=== PATIENT | male | born 1950 | race Caucasian/White ===

== ENCOUNTER → 2018-03-08 | Outpatient (CLI) | payer MEDICARE ==
[2018-03-08 16:25] LABS: BASO % 0.1 % (0.0-1.0); EOS % 0.3 % (0.0-3.0); HEMATOCRIT 43.7 % (42.0-52.0); HEMOGLOBIN 15.4 g/dl (13.5-17.5); IMMATURE GRANULOCYTE % 0.4 % (0-3.0); LYMPH # 0.8 10^3/uL (1.5-4.5); LYMPH % 7.9 % (24.0-44.0); MEAN CORPUSCULAR HEMOGLOBIN 32.6 pg (27.0-33.0); MEAN CORPUSCULAR HGB CONC 35.2 g/dl (32.0-36.5); MEAN CORPUSCULAR VOLUME 92.4 fl (80.0-96.0); MONO # 1.3 10^3/uL (0.0-0.8); MONO % 12.9 % (0.0-5.0); NEUTROPHILS # 8.1 10^3/uL (1.8-7.7); NEUTROPHILS % 78.4 % (36.0-66.0); PLATELET COUNT, AUTOMATED 352 10^3/uL (150-450); RED BLOOD COUNT 4.73 10^6/uL (4.30-6.10); RED CELL DISTRIBUTION WIDTH 12.5 % (11.5-14.5); WHITE BLOOD COUNT 10.3 10^3/uL (4.0-10.0)
[2018-03-08 17:01] LABS: ALBUMIN 3.5 GM/DL (3.2-5.2); ALBUMIN/GLOBULIN RATIO 0.88 (1.00-1.93); ALKALINE PHOSPHATASE 59 U/L (45-117); ALT/SGPT 16 U/L (12-78); ANION GAP 7 MEQ/L (8-16); AST/SGOT 16 U/L (7-37); BILIRUBIN,TOTAL 0.4 MG/DL (0.2-1.0); BLOOD UREA NITROGEN 34 MG/DL (7-18); CARBON DIOXIDE LEVEL 26 MEQ/L (21-32); CHLORIDE LEVEL 103 MEQ/L (98-107); CREATININE FOR GFR 2.33 MG/DL (0.70-1.30); GLOMERULAR FILTRATION RATE 30.1 (>49); GLUCOSE, FASTING 115 MG/DL (70-100); POTASSIUM SERUM 4.1 MEQ/L (3.5-5.1); SODIUM LEVEL 136 MEQ/L (136-145); TOTAL PROTEIN 7.5 GM/DL (6.4-8.2)
== END ==
LOC: M LAB 16:08
DX: R05 Cough (principal); R06.02 Shortness of breath; R07.9 Chest pain, unspecified
CPT/HCPCS: 71046

== ENCOUNTER → 2018-03-11 | Outpatient (CLI) | payer MEDICARE ==
[2018-03-11 17:52] LABS: HEMATOCRIT 40.1 % (42.0-52.0); MEAN CORPUSCULAR HEMOGLOBIN 32.5 pg (27.0-33.0); MEAN CORPUSCULAR HGB CONC 34.9 g/dl (32.0-36.5); PLATELET COUNT, AUTOMATED 345 10^3/uL (150-450); RED BLOOD COUNT 4.31 10^6/uL (4.30-6.10); RED CELL DISTRIBUTION WIDTH 12.1 % (11.5-14.5); WHITE BLOOD COUNT 5.9 10^3/uL (4.0-10.0)
[2018-03-11 18:12] LABS: ALBUMIN 3.4 GM/DL (3.2-5.2); ALKALINE PHOSPHATASE 59 U/L (45-117); ALT/SGPT 22 U/L (12-78); ANION GAP 9 MEQ/L (8-16); AST/SGOT 16 U/L (7-37); BILIRUBIN,TOTAL 0.3 MG/DL (0.2-1.0); BLOOD UREA NITROGEN 20 MG/DL (7-18); CARBON DIOXIDE LEVEL 27 MEQ/L (21-32); CHLORIDE LEVEL 102 MEQ/L (98-107); CREATININE FOR GFR 1.38 MG/DL (0.70-1.30); FREE T4 1.22 NG/DL (0.76-1.46); GLOMERULAR FILTRATION RATE 55.1 (>49); GLUCOSE, FASTING 103 MG/DL (70-100); POTASSIUM SERUM 4.1 MEQ/L (3.5-5.1); SODIUM LEVEL 138 MEQ/L (136-145); TOTAL PROTEIN 6.5 GM/DL (6.4-8.2)
== END ==
LOC: M WUC 13:48
DX: R63.4 Abnormal weight loss (principal); R53.83 Other fatigue; R11.0 Nausea; N28.9 Disorder of kidney and ureter, unspecified
CPT/HCPCS: 84443

== ENCOUNTER → 2020-02-22 | Outpatient (REF) | payer MEDICARE ==
[2020-02-22 11:33] LABS: BASO % 0.4 % (0.0-1.0); EOS # 0.1 10^3/uL (0.0-0.5); EOS % 0.4 % (0.0-3.0); HEMATOCRIT 46.3 % (42.0-52.0); HEMOGLOBIN 15.5 g/dl (13.5-17.5); LYMPH # 0.9 10^3/uL (1.5-5.0); LYMPH % 7.9 % (24.0-44.0); MEAN CORPUSCULAR HEMOGLOBIN 31.4 pg (27.0-33.0); MEAN CORPUSCULAR HGB CONC 33.5 g/dl (32.0-36.5); MEAN CORPUSCULAR VOLUME 93.9 fl (80.0-96.0); MONO # 1.3 10^3/uL (0.0-0.8); MONO % 11.2 % (0.0-5.0); NEUTROPHILS % 79.5 % (36.0-66.0); PLATELET COUNT, AUTOMATED 321 10^3/uL (150-450); RED BLOOD COUNT 4.93 10^6/uL (4.30-6.10); WHITE BLOOD COUNT 11.3 10^3/uL (4.0-10.0)
== END ==
LOC: M LAB REF 11:18
PROVIDERS: ATTEND Physician Assistant
DX: M25.50 Pain in unspecified joint (principal)

== ENCOUNTER 2021-05-01 14:14 | Observation (INO) | payer MEDICARE ==
[~2021-05-01] VITALS: Ht 175.3 cm; Wt 58.8 kg
[2021-05-01 14:52] LABS: BASO % 0.2 % (0.0-1.0); HEMATOCRIT 46.2 % (42.0-52.0); HEMOGLOBIN 15.6 g/dl (13.5-17.5); LYMPH # 0.5 10^3/uL (1.5-5.0); LYMPH % 3.2 % (24.0-44.0); MEAN CORPUSCULAR HEMOGLOBIN 31.6 pg (27.0-33.0); MEAN CORPUSCULAR HGB CONC 33.8 g/dl (32.0-36.5); MEAN CORPUSCULAR VOLUME 93.5 fl (80.0-96.0); MONO # 1.6 10^3/uL (0.0-0.8); MONO % 11.2 % (2.0-8.0); NEUTROPHILS # 12.3 10^3/uL (1.5-8.5); NEUTROPHILS % 84.8 % (36.0-66.0); PLATELET COUNT, AUTOMATED 317 10^3/uL (150-450); RED BLOOD COUNT 4.94 10^6/uL (4.30-6.10)
[2021-05-01 14:56] LABS: WHITE BLOOD COUNT 14.5 10^3/uL (4.0-10.0)
--- NOTE | 2021-05-01 14:59 | REP ---
INDICATION: DYSPNEA/COUGH. COMPARISON: Comparison chest x-ray March 08, 2018. TECHNIQUE: Upright AP portable chest x-ray, two views.. FINDINGS: Lungs are somewhat hyperinflated but free of infiltrate. Pleural angles are sharp. Heart is not enlarged. The aorta is calcific and tortuous as before. Pulmonary vasculature is not increased. No significant bony abnormality is seen.. IMPRESSION: Hyperinflation. No acute disease.. <Electronically signed by Jaspreet Peterson > 05/01/21 [id number]
[2021-05-01 15:29] LABS: ALBUMIN 3.7 GM/DL (3.2-5.2); ALT/SGPT 24 U/L (12-78); BILIRUBIN,DIRECT < 0.1 MG/DL (0.0-0.2); BILIRUBIN,TOTAL 0.7 MG/DL (0.2-1.0); BLOOD UREA NITROGEN 33 MG/DL (7-18); CALCIUM LEVEL 9.8 MG/DL (8.8-10.2); CARBON DIOXIDE LEVEL 25 MEQ/L (21-32); CHLORIDE LEVEL 102 MEQ/L (98-107); CREATININE FOR GFR 2.38 MG/DL (0.70-1.30); GLOMERULAR FILTRATION RATE 29.1 (>49); GLUCOSE, FASTING 120 MG/DL (70-100); POTASSIUM SERUM 4.9 MEQ/L (3.5-5.1); SODIUM LEVEL 134 MEQ/L (136-145); TOTAL PROTEIN 7.5 GM/DL (6.4-8.2)
[2021-05-01 15:53] LABS: CK-MB VALUE MASS < 1.0 NG/ML (<3.6); CPK CREATINE PHOSPHOKINASE 107 U/L (39-308); MB/CK RELATIVE INDEX 0.93 (< OR =4); NT-PRO BNP 527 PG/ML (<125); TROPONIN I < 0.02 NG/ML (< 0.10)
[2021-05-01] MEDS ORDERED: NS 1,000 ML IV SCH (15:55)
--- NOTE | 2021-05-01 16:05 | REP ---
INDICATION: R flank pain. COMPARISON: None. TECHNIQUE: Noncontrast enhanced stone protocol due right flank pain FINDINGS: There are multiple bilateral nonobstructing nephroliths. Calcified granulomas are seen in the spleen. There is no hepatic, gallbladder, pancreatic, or adrenal abnormality seen on this noncontrast enhanced exam. Limited evaluation of the abdominal aorta and para-aortic regions show no gross abnormalities. There is no gross bowel loop or mesenteric abnormality. There is no free fluid or free air. Bone window technique throughout the examination shows the osseous structures to be within normal limits. IMPRESSION: Nonobstructing bilateral nephroliths <Electronically signed by Morro Wu > 05/01/21 [id number]
[2021-05-01 16:06] LABS: LIPASE 73 U/L (73-393)
--- NOTE | 2021-05-01 16:08 | REP ---
INDICATION: SOB COMPARISON: None. TECHNIQUE: Limited noncontrast enhanced chest CT using standard helical technique FINDINGS: There is no gross mediastinal or hilar adenopathy. There are no pleural or pericardial effusions. Calcific atheromatous plaque formation is seen in the thoracic aorta. The osseous structures are within normal limits for the patient's age. Evaluation of the lung webster shows lung field hyperexpansion and emphysematous changes with biapical pleuroparenchymal scarring. There is an incidental calcified granuloma in the left lower lobe. There is a small amount of mucoid debris in the right mainstem bronchus and bronchus intermedius. There is cylindrical bronchiectasis. IMPRESSION: 1. Emphysematous changes as described above. 2. Biapical pleuroparenchymal scarring, however, there are no priors comparison. Three-month follow-up chest CT is recommended. 3. Mucoid debris in the right mainstem bronchus and bronchus intermedius. 4. There is bronchiectasis of the cylindrical type. 5. Other findings as described above <Electronically signed by Morro Wu > 05/01/21 [id number]
[2021-05-01] MEDS ORDERED: ACETAMINOPHEN TAB 650MG DOSE (2X325MG) PO PRN (17:55)
[2021-05-01] MEDS ORDERED: ALBUTEROL 90 MCG/ACT 8GM HFA INHALER INH PRN (17:55)
[2021-05-01] MEDS ORDERED: LORazepam 2 MG TAB PO PRN (18:00)
[2021-05-01] MEDS ORDERED: LevoFLOXacin IV 750 MG in IV 1 EA IV SCH (18:00)
--- NOTE | 2021-05-01 18:09 | HPEPDOC ---
General Date of Admission 05/01/21 Date of Service: May 01, 2021 Chief Complaint The patient is a 70-year-old male admitted with a reason for visit of SOB. Source: Patient Exam Limitations: No limitations Timing/Duration: Day(s) History of Present Illness Patient is 70 years old male with past medical history of COPD, alcohol abuse, smoking abuse presented to hospital with increased shortness of breath. Patient stated that for the past 5 to 6 days he has been having increased shortness of breath associated with yellowish sputum and cough. He reported that his shortness of breath became progressively worse and he decided to come to ER. Patient denied fever, chills, nausea, vomiting diarrhea or dysuria. Patient stated that he smokes cigarettes for many years but was able to cut down to 5 to 6 cigarettes in a day from a pack in a day. Of note patient stated with he drinks 6 packs of beer in a day In ER patient was found to have tachycardia with heart rate around 105, elevated D-dimer of 1844, leukocytosis of 14.5, BNP 527, creatinine 2.3. Chest CT showed Emphysematous changes, biapical pleuroparenchymal scarring, Mucoid debris in the right mainstem bronchus and bronchus intermedius, There is bronchiectasis of the cylindrical type Home Medications No Active Prescriptions or Reported Meds Allergies Coded Allergies: No Known Allergies (Unverified , 05/01/21) Past Medical History Medical History COPD, alcohol and smoking abuse Family History I personally reviewed family history and found not pertinent Social History * Smoker: current smoker Alcohol: heavy Drugs: denies A-FIB/CHADSVASC A-FIB History Current/History of A-Fib/PAF?: No Current PO Anticoag Therapy: No Review of Systems Constitutional: Denies: Chills, Fever Eyes: Denies: Pain ENT: Denies: Head Aches Skin: Denies: Rash Pulmonary: Reports: Dyspnea, Cough, Pleuritic Chest Pain Cardiovascular: Denies: Chest Pain, Palpitations Gastrointestinal: Denies: Nausea, Vomiting Genitourinary: Denies: Dysuria Hematologic: Denies: Bruising Endocrine: Denies: Polydipsia Musculoskeletal: Denies: Neck Pain Neurological: Denies: Weakness Psych: Reports: Mood Normal Physical Examination General Exam: Positive: Alert, Cooperative Eye Exam: Positive: PERRLA ENT Exam: Positive: Atraumatic Neck Exam: Positive: Supple; Negative: JVD Chest Exam: Positive: Rhonchi, Diminished Heart Exam: Positive: Tachycardic Telemetry: Positive: Sinus Abdomen Exam: Positive: Normal bowel sounds Extremity Exam: Negative: Cyanosis Skin Exam: Positive: Nl turgor and temperature Neuro Exam: Positive: Strength at 5/5 X4 ext, Cranial Nerves 3-12 NL Psych Exam: Positive: Mental status NL Vital Signs Vital Signs Date Time Temp Pulse Resp B/P (MAP) Pulse Ox O2 Delivery O2 Flow Rate FiO2 05/01/21 16:48 145/80 (101) 05/01/21 16:41 91 99 05/01/21 14:32 32 Room Air 05/01/21 14:15 98.3 Laboratory Data Labs 24H Laboratory Tests 2 05/01/21 14:41: Immature Granulocyte % (Auto) 0.6, Neutrophils (%) (Auto) 84.8H, Lymphocytes (%) (Auto) 3.2L, Monocytes (%) (Auto) 11.2H, Eosinophils (%) (Auto) 0.0, Basophils (%) (Auto) 0.2, Neutrophils # (Auto) 12.3H, Lymphocytes # (Auto) 0.5L, Monocytes # (Auto) 1.6H, Eosinophils # (Auto) 0.0, Basophils # (Auto) 0.0, Nucleated Red Blood Cells % (auto) 0.0, Anion Gap 7L, Glomerular Filtration Rate 29.1L, Calcium Level 9.8, Total Bilirubin 0.7, Direct Bilirubin < 0.1, Aspartate Amino Transf (AST/SGOT) 34, Alanine Aminotransferase (ALT/SGPT) 24, Alkaline Phosphat ase 72, Total Creatine Kinase 107, Creatine Kinase MB < 1.0, Creatine Kinase MB Relative Index 0.93, Troponin I < 0.02, XX-Uss-X-Type Natriuretic Peptide 527H, Total Protein 7.5, Albumin 3.7, Albumin/Globulin Ratio 1.0, Lipase 73 05/01/21 14:46: POC Troponin I (Misc) 0.01 05/01/21 15:58: D-Dimer, Quantitative 1844.91H, Urine Color LARRY, Urine Appearance CLOUDYH, Urine pH 5.0, Urine Specific [place] 1.018, Urine Protein 2+H, Urine Glucose (UA) 1+H, Urine Ketones TRACEH, Urine Blood 1+H, Urine Nitrite NEGATIVE, Urine Bilirubin NEGATIVE, Urine Urobilinogen 2.0H, Urine Leukocyte Esterase NEGATIVE, Urine WBC (Auto) 14H, Urine RBC (Auto) 2, Urine Hyaline Casts (Auto) 4, Urine Bacteria (Auto) 1+H, Urine Squamous Epithelial Cells 2, Urine Granular Casts (A uto) 6, Urine Mucus (Auto) SMALL, Urine Sperm (Auto) CBC/BMP Laboratory Tests 05/01/21 14:41 Microbiology Microbiology 05/01/21 Urine Culture, Received Pending 05/01/21 Respiratory Virus Panel (PCR) ([facility]) - Final, Complete Assessment/Plan Patient is 70 years old male with past medical history of COPD, alcohol abuse, smoking abuse presented to hospital with increased shortness of breath. Patient stated that for the past 5 to 6 days he has been having increased shortness of breath associated with yellowish sputum and cough. He reported that his shortness of breath became progressively worse and he decided to come to ER. Patient denied fever, chills, nausea, vomiting diarrhea or dysuria. Patient stated that he smokes cigarettes for many years but was able to cut down to 5 to 6 cigarettes in a day from a pack in a day. Of note patient stated with he drinks 6 packs of beer in a day In ER patient was found to have tachycardia with heart rate around 105, elevated D-dimer of 1844, leukocytosis of 14.5, BNP 527, creatinine 2.3. Chest CT showed Emphysematous changes, biapical pleuroparenchymal scarring, Mucoid debris in the right mainstem bronchus and bronchus intermedius, There is bronchiectasis of the cylindrical type Problems (1) Shortness of breath Status: Acute Problem Text: Most likely secondary to COPD exacerbation superimposed with bronchiectasis Patient complains of yellowish sputum production and intermittent cough Inhalers, p.o. prednisone, levofloxacin IV Incentive spirometry (2) Tachycardia Status: Acute Problem Text: Most likely secondary to COPD exacerbation and dehydration Continue to monitor Echo ordered given elevated BNP and D-dimer Suspicion for pulmonary emboli is low. We will check Doppler ultrasound of lower extremities (3) DEJA (acute kidney injury) Status: Acute Problem Text: Most likely secondary to dehydration Continue to monitor Plan / VTE VTE Prophylaxis Ordered?: Yes MEGAN EUBANKS DO May 01, 2021 18:09
--- NOTE | 2021-05-01 18:44 | REP ---
INDICATION: elevated ddimer chest pain r/o DVT. TECHNIQUE: Multiple ultrasonographic images of the deep venous structures of the bilateral thighs were obtained from the level of the common femoral vein to the popliteal vein in the longitudinal and transverse scan planes along with Doppler interrogation and color flow Doppler imaging. Additional imaging of the bilateral posterior tibial and peroneal veins performed. FINDINGS: There is no abnormal echogenic material seen within any of the visualized deep venous structures that would suggest acute thrombosis. Coaptation is unremarkable throughout. Doppler interrogation shows an expected response to respiratory variability and augmentation. The color flow Doppler images show what appears to be a normal vascular pattern throughout. There is full compressibility of the bilateral posterior tibial and peroneal veins throughout their visible course. IMPRESSION: There is no ultrasonographic evidence of deep venous thrombosis involving any of the visualized deep venous structures of the bilateral thighs as described above. Full compressibility of the bilateral posterior tibial and peroneal veins. Accredited by the [employer] in Vascular Peripheral Ultrasound. <Electronically signed by Prabhakar Del Valle > 05/01/21 [id number]
[2021-05-01] MEDS: NS 1,000 ML IV SCH (19:45)
[2021-05-01] MEDS: IPRATROPIUM 0.5MG/ALBUTEROL 2.5MG INH SOL UD 3ML (DUONEB) NEB SCH (20:00)
[2021-05-01] MEDS: ADVAIR HFA 115/21MCG INHALER INH SCH (20:00)
[2021-05-01] MEDS: THIAMINE 100 MG TAB PO SCH (21:16)
[2021-05-01] MEDS: HEPARIN SOD (PORCINE) 5000UNITS/ML 1ML VIAL/SYRINGE SC SCH (21:16)
[2021-05-01 22:15] VITALS: BP 168/88
[2021-05-01 22:30] VITALS: BP 168/88
[2021-05-02] VITALS (9 sets, daily range): BP systolic 120–171; BP diastolic 68–101
[2021-05-02] MEDS: IPRATROPIUM 0.5MG/ALBUTEROL 2.5MG INH SOL UD 3ML (DUONEB) NEB SCH ×4 (01:44→19:31)
[2021-05-02] MEDS: NS 1,000 ML IV SCH (06:05)
[2021-05-02 06:11] LABS: HEMATOCRIT 40.5 % (42.0-52.0); HEMOGLOBIN 13.8 g/dl (13.5-17.5); MEAN CORPUSCULAR HEMOGLOBIN 32.2 pg (27.0-33.0); MEAN CORPUSCULAR HGB CONC 34.1 g/dl (32.0-36.5); MEAN CORPUSCULAR VOLUME 94.6 fl (80.0-96.0); PLATELET COUNT, AUTOMATED 267 10^3/uL (150-450); RED BLOOD COUNT 4.28 10^6/uL (4.30-6.10); WHITE BLOOD COUNT 8.1 10^3/uL (4.0-10.0)
[2021-05-02 06:37] LABS: ALBUMIN 2.8 GM/DL (3.2-5.2); BILIRUBIN,TOTAL 0.5 MG/DL (0.2-1.0); CALCIUM LEVEL 9.1 MG/DL (8.8-10.2); CREATININE FOR GFR 1.54 MG/DL (0.70-1.30); GLOMERULAR FILTRATION RATE 48.1 (>49); POTASSIUM SERUM 4.3 MEQ/L (3.5-5.1); TOTAL PROTEIN 6.1 GM/DL (6.4-8.2)
[2021-05-02] MEDS: ADVAIR HFA 115/21MCG INHALER INH SCH ×2 (07:49→19:31)
[2021-05-02] MEDS: predniSONE 20 MG TAB PO SCH (08:45)
[2021-05-02] MEDS: HEPARIN SOD (PORCINE) 5000UNITS/ML 1ML VIAL/SYRINGE SC SCH ×2 (08:45→20:11)
[2021-05-02] MEDS: THIAMINE 100 MG TAB PO SCH ×2 (08:45→20:10)
[2021-05-02] MEDS: MULTIVITAMINS/MINERALS THERAP 1 TAB PO SCH (08:45)
[2021-05-02] MEDS: PANTOPRAZOLE 40MG TAB (PROTONIX) PO SCH (08:45)
[2021-05-02] MEDS: NICOTINE 14 MG/24 HR TRANSDERMAL TD SCH (08:45)
[2021-05-02] MEDS: FOLIC ACID 1 MG TAB PO SCH (08:45)
--- NOTE | 2021-05-02 10:52 | ECGEPIP ---
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
--- NOTE | 2021-05-02 11:27 | IPNPDOC ---
Text Note Date of Service The patient was seen on 05/02/21. NOTE Subjective: Patient stated with his breathing improved today. Denies fever or chills Objective: GENERAL APPEARANCE: NAD HEENT: no scleral icterus, no JVD, EOMI CARDIOVASCULAR: S1S2 LUNGS: Mild wheezes bilaterally with rhonchi ABDOMEN: soft & not tender w palpitation MUSCULOSKELETAL: no cyanosis, no swelling INTEGUMENT: no generalized pallor NEUROLOGICAL: cranial nerve function from 2-12 intact intact, follows commands, speech not dysarthric Assessment/Plan Patient is 70 years old male with past medical history of COPD, alcohol abuse, smoking abuse presented to hospital with increased shortness of breath. Patient stated that for the past 5 to 6 days he has been having increased shortness of breath associated with yellowish sputum and cough. He reported that his shortness of breath became progressively worse and he decided to come to ER. Patient denied fever, chills, nausea, vomiting diarrhea or dysuria. Patient stated that he smokes cigarettes for many years but was able to cut down to 5 to 6 cigarettes in a day from a pack in a day. Of note patient stated with he drinks 6 packs of beer in a day In ER patient was found to have tachycardia with heart rate around 105, elevated D-dimer of 1844, leukocytosis of 14.5, BNP 527, creatinine 2.3. Chest CT showed Emphysematous changes, biapical pleuroparenchymal scarring, Mucoid debris in the right mainstem bronchus and bronchus intermedius, There is bronchiectasis of the cylindrical type Problems (1) Shortness of breath Most likely secondary to COPD exacerbation superimposed with bronchiectasis Patient complains of yellowish sputum production and intermittent cough Inhalers, p.o. prednisone, levofloxacin IV Incentive spirometry (2) Tachycardia Most likely secondary to COPD exacerbation and dehydration Heart rate under control Await Echo Suspicion for pulmonary emboli is low. Doppler ultrasound of lower extremities negative for DVT (3) DEJA (acute kidney injury) Most likely secondary to dehydration Continue to monitor Improved Hypertension Continue Norvasc, kidney function improved and I added lisinopril VS,Fishbone, I+O VS, Fishbone, I+O Laboratory Tests 05/01/21 14:41 05/02/21 05:41 Vital Signs Date Time Temp Pulse Resp B/P (MAP) Pulse Ox O2 Delivery O2 Flow Rate FiO2 05/02/21 10:54 169/101 05/02/21 10:54 95 05/02/21 06:00 97.6 20 97 Room Air I&O- Last 24 Hours up to 6 AM 05/02/21 06:00 Intake Total 1080 ml Balance 1080 ml MEGAN EUBANKS DO May 02, 2021 11:27
[2021-05-02] MEDS ORDERED: LevoFLOXacin IV 750 MG in IV 1 EA IV SCH (12:00)
[2021-05-03] MEDS: IPRATROPIUM 0.5MG/ALBUTEROL 2.5MG INH SOL UD 3ML (DUONEB) NEB SCH ×2 (02:00→07:54)
[2021-05-03 06:00] VITALS: BP 137/82
[2021-05-03] MEDS: ADVAIR HFA 115/21MCG INHALER INH SCH (07:54)
[2021-05-03 08:49] LABS: BASO % 0.1 % (0.0-1.0); HEMOGLOBIN 13.4 g/dl (13.5-17.5); LYMPH # 0.5 10^3/uL (1.5-5.0); LYMPH % 5.9 % (24.0-44.0); MEAN CORPUSCULAR HGB CONC 34.4 g/dl (32.0-36.5); MEAN CORPUSCULAR VOLUME 93.1 fl (80.0-96.0); MONO # 0.9 10^3/uL (0.0-0.8); MONO % 10.6 % (2.0-8.0); NEUTROPHILS # 7.2 10^3/uL (1.5-8.5); NEUTROPHILS % 82.9 % (36.0-66.0); PLATELET COUNT, AUTOMATED 269 10^3/uL (150-450); RED BLOOD COUNT 4.19 10^6/uL (4.30-6.10); WHITE BLOOD COUNT 8.7 10^3/uL (4.0-10.0)
[2021-05-03] MEDS ORDERED: lisinopriL 40 MG TAB PO SCH (09:00)
[2021-05-03 09:28] LABS: ALBUMIN 2.8 GM/DL (3.2-5.2); ALT/SGPT 24 U/L (12-78); BILIRUBIN,TOTAL 0.2 MG/DL (0.2-1.0); BLOOD UREA NITROGEN 21 MG/DL (7-18); CALCIUM LEVEL 9.2 MG/DL (8.8-10.2); CARBON DIOXIDE LEVEL 23 MEQ/L (21-32); CHLORIDE LEVEL 108 MEQ/L (98-107); CREATININE FOR GFR 1.07 MG/DL (0.70-1.30); GLOMERULAR FILTRATION RATE > 60.0 (>49); GLUCOSE, FASTING 115 MG/DL (70-100); MAGNESIUM LEVEL 2.1 MG/DL (1.8-2.4); POTASSIUM SERUM 3.7 MEQ/L (3.5-5.1); SODIUM LEVEL 139 MEQ/L (136-145)
[2021-05-03 09:33] VITALS: BP 137/82
[2021-05-03] MEDS: predniSONE 20 MG TAB PO SCH (09:33)
[2021-05-03] MEDS: MULTIVITAMINS/MINERALS THERAP 1 TAB PO SCH (09:33)
[2021-05-03] MEDS: THIAMINE 100 MG TAB PO SCH (09:33)
[2021-05-03] MEDS: PANTOPRAZOLE 40MG TAB (PROTONIX) PO SCH (09:33)
[2021-05-03] MEDS: FOLIC ACID 1 MG TAB PO SCH (09:33)
[2021-05-03] MEDS: NICOTINE 14 MG/24 HR TRANSDERMAL TD SCH (09:34)
[2021-05-03] MEDS: HEPARIN SOD (PORCINE) 5000UNITS/ML 1ML VIAL/SYRINGE SC SCH (09:35)
[2021-05-03] MEDS ORDERED: LISI40TA4 PO (09:50)
[2021-05-03] MEDS ORDERED: ADVA115A INH (09:50)
[2021-05-03] MEDS ORDERED: NICO14PA TD (09:50)
[2021-05-03] MEDS ORDERED: PRED5PAK PO (09:50)
[2021-05-03] MEDS ORDERED: AMLO1TAB25 PO (09:50)
[2021-05-03] MEDS ORDERED: SPIR1CAP INH (09:50)
[2021-05-03] MEDS ORDERED: VENTAER INH (09:50)
[2021-05-03] MEDS ORDERED: LEVO500T3 PO (09:50)
[2021-05-03] MEDS ORDERED: PANT40TA29 PO (09:50)
[2021-05-03] MEDS ORDERED: AIRD1INH3 INH (11:05)
--- NOTE | 2021-05-03 16:25 | DS.PDOC ---
Discharge Summary General Date of Admission May 01, 2021 at 14:15 Date of Discharge 05/03/21 Discharge Summary PROCEDURES PERFORMED DURING STAY: [None]. ADMITTING DIAGNOSES: Shortness of breath Tachycardia DEJA (acute kidney injury) Hypertension DISCHARGE DIAGNOSES: Shortness of breath Tachycardia DEJA (acute kidney injury) Hypertension COMPLICATIONS/CHIEF COMPLAINT: SOB. HISTORY OF PRESENT ILLNESS:Patient is 70 years old male with past medical history of COPD, alcohol abuse, smoking abuse presented to hospital with increased shortness of breath. Patient stated that for the past 5 to 6 days he has been having increased shortness of breath associated with yellowish sputum and cough. He reported that his shortness of breath became progressively worse and he decided to come to ER. Patient denied fever, chills, nausea, vomiting diarrhea or dysuria. Patient stated that he smokes cigarettes for many years but was able to cut down to 5 to 6 cigarettes in a day from a pack in a day. Of note patient stated with he drinks 6 packs of beer in a day In ER patient was found to have tachycardia with heart rate around 105, elevated D-dimer of 1844, leukocytosis of 14.5, BNP 527, creatinine 2.3. Chest CT showed Emphysematous changes, biapical pleuroparenchymal scarring, Mucoid debris in the right mainstem bronchus and bronchus intermedius, There is bronchiectasis of the cylindrical type HOSPITAL COURSE: During her hospital stay the following history addressed (1) Shortness of breath Most likely secondary to COPD exacerbation superimposed with bronchiectasis Patient complains of yellowish sputum production and intermittent cough Patient received treatment with inhalers, p.o. prednisone, levofloxacin IV Incentive spirometry (2) Tachycardia Most likely secondary to COPD exacerbation and dehydration Heart rate under control Suspicion for pulmonary emboli is low. Doppler ultrasound of lower extremities negative for DVT (3) DEJA (acute kidney injury) Most likely secondary to dehydration Continue to monitor Improved Hypertension Continue Norvasc, kidney function improved and I added lisinopril DISCHARGE MEDICATIONS: Please see below. ALLERGIES: Please see below. PHYSICAL EXAMINATION ON DISCHARGE: VITAL SIGNS: Please see below. Objective: GENERAL APPEARANCE: NAD HEENT: no scleral icterus, no JVD, EOMI CARDIOVASCULAR: S1S2 LUNGS: Diminished lung sounds bilaterally ABDOMEN: soft & not tender w palpitation MUSCULOSKELETAL: no cyanosis, no swelling INTEGUMENT: no generalized pallor NEUROLOGICAL: cranial nerve function from 2-12 intact intact, follows commands, speech not dysarthric LABORATORY DATA: Please see below. IMAGING: See above PROGNOSIS: Fair ACTIVITY: [As tolerated]. DIET: Cardiac DISPOSITION: 01 Home, Self-Care. DISCHARGE INSTRUCTIONS: Stop smoking ITEMS TO FOLLOWUP ON ON OUTPATIENT: Follow-up with PCP in 3 to 5 days DISCHARGE CONDITION: [Stable]. TIME SPENT ON DISCHARGE: 40 minutes. Vital Signs/I&Os Vital Signs Date Time Temp Pulse Resp B/P (MAP) Pulse Ox O2 Delivery O2 Flow Rate FiO2 05/03/21 09:33 84 137/82 05/03/21 06:00 97.2 18 97 Room Air I&O- Last 24 Hours up to 6 AM 05/03/21 06:00 Intake Total 4510 ml Output Total 500 ml Balance 4010 ml Laboratory Data Labs 24H Laboratory Tests 2 05/03/21 08:31: Immature Granulocyte % (Auto) 0.5, Neutrophils (%) (Auto) 82.9H, Lymphocytes (%) (Auto) 5.9L, Monocytes (%) (Auto) 10.6H, Eosinophils (%) (Auto) 0.0, Basophils (%) (Auto) 0.1, Neutrophils # (Auto) 7.2, Lymphocytes # (Auto) 0.5L, Monocytes # (Auto) 0.9H, Eosinophils # (Auto) 0.0, Basophils # (Auto) 0.0, Nucleated Red Blood Cells % (auto) 0.0, Anion Gap 8, Glomerular Filtration Rate > 60.0, Calcium Level 9.2, Magnesium Level 2.1, Total Bilirubin 0.2#, Aspartate Amino Transf (AST/SGOT) 19, Alanine Aminotransferase (ALT/SGPT) 24, Alkaline Phosphatase 57, Total Protein 6.0L, Albumin 2.8L, Albumin/Globulin Ratio 0.9 CBC/BMP Laboratory Tests 05/03/21 08:31 Microbiology Microbiology 05/01/21 Urine Culture - Final, Complete 05/01/21 Respiratory Virus Panel (PCR) ([facility]) - Final, Complete Discharge Medications Scheduled Amlodipine Besylate (Amlodipine Besylate) 10 Mg Tablet, 10 MG PO DAILY Fluticasone Propion/Salmeterol (Airduo Respiclick 232-14 Mcg) 1 Each Aer.pow.ba, 1 PUFF INH BID Levofloxacin (Levofloxacin) 500 Mg Tablet, 1 TAB PO DAILY Lisinopril (Lisinopril) 40 Mg Tablet, 40 MG PO DAILY Nicotine (Nicotine Patch) 14 Mg Patch.td24, 1 PATCH TD DAILY Pantoprazole Sodium (Pantoprazole Sodium) 40 Mg Tablet.dr, 40 MG PO DAILY Prednisone (Prednisone) 5 Mg Tab.ds.pk, 5 MG PO ASDIRECTED 6 day dose pack taper Tiotropium [place] (Spiriva) 18 Mcg Cap.w.dev, 18 MCG INH DAILY Scheduled PRN Albuterol Sulfate (Ventolin Hfa) 18 Gm Hfa.aer.ad, 4 PUFF INH Q1HP PRN for SHORTNESS OF BREATH Allergies Coded Allergies: No Known Allergies (Unverified , 05/01/21) MEGAN EUBANKS DO May 03, 2021 16:25
[2021-05-04] MEDS ORDERED: LevoFLOXacin IV 750 MG in IV 1 EA IV SCH (12:00)
== END 2021-05-03 11:48 | disposition home or self-care (01) ==
LOC: M ED 14:14 → M ED INP 14:15 → CANRESERV 19:43 → ENRESERV 19:43 → M MSPAV 22:20
PROVIDERS: ADMIT Internal Medicine; ATTEND Internal Medicine
DX: R06.02 Shortness of breath (principal); R00.0 Tachycardia, unspecified; N17.9 Acute kidney failure, unspecified; I10 Essential (primary) hypertension; F10.10 Alcohol abuse, uncomplicated; Z79.899 Other long term (current) drug therapy; Z79.2 Long term (current) use of antibiotics; Z79.52 Long term (current) use of systemic steroids; F17.210 Nicotine dependence, cigarettes, uncomplicated
CPT/HCPCS: 36415; 71045; 71250; 74176; 80048; 80053; 80076; 81001; 82550; 82553; 83690; 83735; 83880; 84484; 85025; 85027; 85379; 87086; 87798; 93005; 93041; 93970; 94640; 94760; 96361; 96365; 96366; 96372; 99285; G0378; J1644; J1956; J7512

== ENCOUNTER 2021-10-05 20:31 | Inpatient (IN) | payer MEDICARE ==
[~2021-10-05] VITALS: Ht 175.3 cm; Wt 55.8 kg
[~2021-10-05 20:31] MED LIST: ADVA115A INH; AIRD1INH3 INH; AMLO1TAB25 PO; LEVO500T3 PO; LISI40TA4 PO; NICO14PA TD; PANT40TA29 PO; PRED5PAK PO; SPIR1CAP INH; VENTAER INH
[2021-10-05] MEDS ORDERED: NS 1,000 ML IV ONE (20:55)
[2021-10-05 21:36] LABS: HEMATOCRIT 47.6 % (42.0-52.0); HEMOGLOBIN 15.9 g/dl (13.5-17.5); LYMPH # 0.2 10^3/uL (1.5-5.0); LYMPH % 9.5 % (24.0-44.0); MEAN CORPUSCULAR HEMOGLOBIN 31.9 pg (27.0-33.0); MEAN CORPUSCULAR HGB CONC 33.4 g/dl (32.0-36.5); MEAN CORPUSCULAR VOLUME 95.6 fl (80.0-96.0); MONO # 0.1 10^3/uL (0.0-0.8); MONO % 4.6 % (2.0-8.0); NEUTROPHILS # 2.1 10^3/uL (1.5-8.5); NEUTROPHILS % 85.9 % (36.0-66.0); PLATELET COUNT, AUTOMATED 253 10^3/uL (150-450); RED BLOOD COUNT 4.98 10^6/uL (4.30-6.10); WHITE BLOOD COUNT 2.4 10^3/uL (4.0-10.0)
[2021-10-05 21:47] LABS: INR 1.27; PROTHROMBIN TIME 16.3 SECONDS (12.7-14.5)
[2021-10-05 21:48] LABS: PARTIAL THROMBOPLASTIN TIME 29.7 SECONDS (25.9-37.0)
[2021-10-05 22:03] LABS: ALBUMIN 3.2 GM/DL (3.2-5.2); ALT/SGPT 16 U/L (12-78); BILIRUBIN,DIRECT 0.2 MG/DL (0.0-0.2); BILIRUBIN,TOTAL 0.6 MG/DL (0.2-1.0); BLOOD UREA NITROGEN 18 MG/DL (7-18); CALCIUM LEVEL 8.8 MG/DL (8.8-10.2); CARBON DIOXIDE LEVEL 21 MEQ/L (21-32); CHLORIDE LEVEL 107 MEQ/L (98-107); CREATININE FOR GFR 1.25 MG/DL (0.70-1.30); GLOMERULAR FILTRATION RATE > 60.0 (>49); GLUCOSE, FASTING 123 MG/DL (70-100); LIPASE 34 U/L (73-393); POTASSIUM SERUM 3.8 MEQ/L (3.5-5.1); SODIUM LEVEL 142 MEQ/L (136-145); TOTAL PROTEIN 5.7 GM/DL (6.4-8.2)
[2021-10-05 22:13] LABS: RSV AMPLIFICATION NEGATIVE (NEGATIVE)
[2021-10-05] MEDS ORDERED: ISOVUE-370 76% 100ML VIAL As Ordered ONE (22:28)
[2021-10-05] MEDS ORDERED: NS 500 ML IV ONE (22:50)
[2021-10-05] MEDS ORDERED: PIPERACILLIN/TAZOBACTAM SOD 4.5 GM in D5W MINI-BAG PLUS 50 ML IV ONE (23:00)
--- NOTE | 2021-10-05 23:09 | REPVR ---
PROCEDURE INFORMATION: Exam: XR Chest Exam date and time: 10/05/2021 10:13 PM Age: 71 years old Clinical indication: Pre-operative exam; Respiratory screening exam; Additional info: Preop TECHNIQUE: Imaging protocol: XR of the chest. Views: 1 view. COMPARISON: CT Chest without contrast 05/01/2021 3:49 PM FINDINGS: Lungs: Unremarkable. No consolidation. Pleural spaces: Unremarkable. No pleural effusion. No pneumothorax. Heart/Mediastinum: Unremarkable. No cardiomegaly. Bones/joints: Unremarkable. Intraperitoneal space: Evidence free air in the abdomen. IMPRESSION: 1. Evidence of free air in the abdomen. 2. Otherwise negative chest. Electronically signed by: Hmuberto Alexander On 10/05/2021 23:09:20 PM
--- NOTE | 2021-10-05 23:21 | REPVR ---
PROCEDURE INFORMATION: Exam: CT Abdomen And Pelvis With Contrast Exam date and time: 10/05/2021 10:52 PM Age: 71 years old Clinical indication: Abdominal pain; Generalized TECHNIQUE: Imaging protocol: Computed tomography of the abdomen and pelvis with contrast. Radiation optimization: All CT scans at this facility use at least one of these dose optimization techniques: automated exposure control; mA and/or kV adjustment per patient size (includes targeted exams where dose is matched to clinical indication); or iterative reconstruction. Contrast material: ISOVUE 370; Contrast volume: 100 ml; Contrast route: INTRAVENOUS (IV); COMPARISON: CT ABD PELVIS W/O CONTRAST 05/01/2021 3:49 PM FINDINGS: Lungs: Minimal bibasilar fibro-atelectatic change. Diaphragm: Minimal hiatal hernia. Liver: There are a few small hepatic cysts which measure up to 11 mm in the posterior right hepatic lobe. Gallbladder and bile ducts: Normal. No calcified stones. No ductal dilation. Pancreas: Normal. No ductal dilation. Spleen: Several splenic calcifications are noted. Adrenal glands: Normal. No mass. Kidneys and ureters: Normal. No hydronephrosis. Stomach and bowel: Scattered areas of colonic wall thickening. There is colonic diverticulosis with mid sigmoid wall thickening suggesting mild diverticulitis. Small bowel wall enhancement in the pelvis which may reflect secondary enteritis. Appendix: A normal appendix is seen. Intraperitoneal space: Free fluid and free air in the abdomen. Vasculature: There is moderate atherosclerotic calcification of the abdominal aorta with extension into the iliac arteries. Lymph nodes: Unremarkable. No enlarged lymph nodes. Urinary bladder: Unremarkable as visualized. Reproductive: Unremarkable as visualized. Bones/joints: Unremarkable. No acute fracture. Soft tissues: Unremarkable. IMPRESSION: 1. Free fluid and free air consistent with perforated viscus. 2. Mild nonspecific pancolitis. 3. Colonic diverticulosis with wall thickening of the sigmoid colon which is greater than other portions of the colon suggesting mild diverticulitis and may account for the site of perforation. 4. Old granulomatous disease of the spleen. 5. Small bowel wall enhancement in the pelvis suggesting secondary enteritis. Electronically signed by: Humberto Alexander On 10/05/2021 23:20:57 PM
[2021-10-05] MEDS ORDERED: LISI20TA33 PO (23:46)
[2021-10-05] MEDS ORDERED: METR-265 PO (23:46)
[2021-10-05] MEDS ORDERED: HOME MED LIST COMPLETE! XX SCH (23:50)
[2021-10-06] VITALS (10 sets, daily range): BP systolic 89–143; BP diastolic 52–90
[2021-10-06] MEDS ORDERED: MORPHINE 2 MG/ML 1ML VIAL (J2270) IV PRN ×2 (00:05→04:10)
[2021-10-06] MEDS ORDERED: ROCURONIUM BROMIDE 50 MG/5 ML VIAL As Ordered ONE (00:41)
[2021-10-06] MEDS ORDERED: LIDOCAINE 2% 100MG/5ML SDV (FOR ANES.) As Ordered ONE (00:41)
[2021-10-06] MEDS ORDERED: propofoL 200 MG/20 ML VIAL As Ordered ONE (00:41)
[2021-10-06] MEDS ORDERED: MIDAZOLAM INJ 2MG/2ML VIAL (J2250 PER 1MG) As Ordered ONE (00:42)
[2021-10-06] MEDS ORDERED: fentaNYL 250 MCG/5 ML INJECTION (J3010) As Ordered ONE (00:42)
[2021-10-06] MEDS ORDERED: VASOPRESSIN INJ 20 UNITS/ML VIAL As Ordered ONE (01:21)
[2021-10-06] MEDS ORDERED: PHENYLephrine 500MCG 5ML (100MCG/ML) SYRINGE As Ordered ONE (01:43)
[2021-10-06] MEDS ORDERED: CALCIUM CHLORIDE 10% 1 GM/10 ML SYR As Ordered ONE (01:43)
[2021-10-06] MEDS ORDERED: HYDROmorphone HCL 2 MG/ML 1ML VIAL As Ordered ONE (02:02)
[2021-10-06] MEDS ORDERED: KETOROLAC 60MG 2ML VIAL As Ordered ONE (02:55)
[2021-10-06] MEDS ORDERED: ACETAMINOPHEN 1000MG 100ML IV BTL (OFIRMEV) (J0131 PER 10MG) As Ordered ONE (02:55)
[2021-10-06] MEDS ORDERED: SUGAMMADEX SODIUM 500 MG/5 ML VIAL (BRIDION) As Ordered ONE (02:55)
[2021-10-06] MEDS ORDERED: dexameTHASONE 4 MG/ML 1ML VIAL (J1100 PER 1MG) As Ordered ONE (02:55)
[2021-10-06] MEDS ORDERED: ONDANSETRON 4MG/2ML VIAL As Ordered ONE (02:55)
[2021-10-06] MEDS ORDERED: LR 1,000 ML IV SCH (04:15)
[2021-10-06] MEDS ORDERED: fentaNYL 100 MCG/2 ML INJECTION (J3010) IV PRN (04:15)
[2021-10-06] MEDS ORDERED: HYDROMORPHONE HCL 0.5 MG/ 0.5 ML SYRINGE (J1170 PER 1) IV PRN (04:15)
[2021-10-06] MEDS ORDERED: oxyCODONE 5MG TAB PO PRN (04:15)
[2021-10-06] MEDS: LR 1,000 ML IV SCH ×3 (04:53→18:58)
[2021-10-06 04:59] LABS: HEMATOCRIT 47.5 % (42.0-52.0); HEMOGLOBIN 15.9 g/dl (13.5-17.5); MEAN CORPUSCULAR HEMOGLOBIN 31.9 pg (27.0-33.0); MEAN CORPUSCULAR HGB CONC 33.5 g/dl (32.0-36.5); MEAN CORPUSCULAR VOLUME 95.2 fl (80.0-96.0); PLATELET COUNT, AUTOMATED 210 10^3/uL (150-450); RED BLOOD COUNT 4.99 10^6/uL (4.30-6.10); WHITE BLOOD COUNT 4.8 10^3/uL (4.0-10.0)
[2021-10-06 05:22] LABS: ALBUMIN 2.4 GM/DL (3.2-5.2); ALT/SGPT 11 U/L (12-78); BILIRUBIN,TOTAL 0.9 MG/DL (0.2-1.0); BLOOD UREA NITROGEN 15 MG/DL (7-18); CALCIUM LEVEL 8.3 MG/DL (8.8-10.2); CARBON DIOXIDE LEVEL 23 MEQ/L (21-32); CHLORIDE LEVEL 113 MEQ/L (98-107); CREATININE FOR GFR 0.98 MG/DL (0.70-1.30); GLOMERULAR FILTRATION RATE > 60.0 (>49); GLUCOSE, FASTING 114 MG/DL (70-100); SODIUM LEVEL 142 MEQ/L (136-145); TOTAL PROTEIN 4.7 GM/DL (6.4-8.2)
[2021-10-06] MEDS: PIPERACILLIN/TAZOBACTAM SOD 3.375 GM in D5W MINI-BAG PLUS 50 ML IV SCH ×4 (05:28→23:59)
[2021-10-06 05:29] LABS: LYMPHOCYTES 6 % (16-44); MONOCYTES 9 % (0-5); NEUTROPHILS 85 % (28-66)
[2021-10-06 05:30] LABS: PLATELET ESTIMATE NORMAL (NORMAL)
[2021-10-06 05:31] LABS: POIKILOCYTOSIS 1+
[2021-10-06] MEDS ORDERED: KETOROLAC 30 MG/ML 1ML VIAL IV PRN (09:00)
[2021-10-07] VITALS (8 sets, daily range): BP systolic 109–139; BP diastolic 63–80
[2021-10-07] MEDS: PIPERACILLIN/TAZOBACTAM SOD 3.375 GM in D5W MINI-BAG PLUS 50 ML IV SCH ×4 (05:57→23:19)
[2021-10-07 06:03] LABS: MEAN CORPUSCULAR HEMOGLOBIN 32.1 pg (27.0-33.0); MEAN CORPUSCULAR HGB CONC 34.4 g/dl (32.0-36.5); MEAN CORPUSCULAR VOLUME 93.3 fl (80.0-96.0); PLATELET COUNT, AUTOMATED 192 10^3/uL (150-450); RED BLOOD COUNT 4.18 10^6/uL (4.30-6.10); WHITE BLOOD COUNT 8.6 10^3/uL (4.0-10.0)
[2021-10-07 06:04] LABS: HEMOGLOBIN 13.4 g/dl (13.5-17.5)
[2021-10-07 06:40] LABS: BLOOD UREA NITROGEN 24 MG/DL (7-18); CALCIUM LEVEL 7.8 MG/DL (8.8-10.2); CARBON DIOXIDE LEVEL 23 MEQ/L (21-32); CHLORIDE LEVEL 113 MEQ/L (98-107); CREATININE FOR GFR 1.21 MG/DL (0.70-1.30); GLOMERULAR FILTRATION RATE > 60.0 (>49); GLUCOSE, FASTING 88 MG/DL (70-100); POTASSIUM SERUM 3.8 MEQ/L (3.5-5.1); SODIUM LEVEL 142 MEQ/L (136-145)
[2021-10-07 06:52] LABS: LYMPHOCYTES 5 % (16-44); MONOCYTES 6 % (0-5); NEUTROPHILS 86 % (28-66); PLATELET ESTIMATE NORMAL (NORMAL)
[2021-10-07 06:53] LABS: POIKILOCYTOSIS 1+
[2021-10-07] MEDS: LR 1,000 ML IV SCH ×2 (07:39→20:55)
--- NOTE | 2021-10-07 07:47 | RO ---
OPERATIVE NOTE DATE OF OPERATION: 10/06/2021 PREOPERATIVE DIAGNOSIS: Perforated viscus. POSTOPERATIVE DIAGNOSIS: Rectosigmoid obstruction with cecal perforation and diffuse peritonitis. PROCEDURES PERFORMED: Exploratory laparotomy with lysis of adhesions, resection of the terminal ileum with cecum and ascending colon with an ileo transverse colon anastomosis, partial sigmoid resection with end colostomy. SURGEON: Porfirio Barnard MD ANESTHESIA: General INDICATIONS FOR THE PROCEDURE: The patient is a 71-year-old man who reported a roughly six-week history of persistent diarrhea with severe crampy abdominal pain. Recently, the pains have become more severe and he felt bloated. On the morning of presentation, which was the 05 of October, he reported severe crampy pains followed by a sensation of something popping and then had severe, diffuse abdominal pain. In the ER, a CT scan showed large amounts of free air and free fluid. There were some suggestions of thickening in the sigmoid colon and rectosigmoid area with some distention of the cecum in particular. He is now for exploratory laparotomy for perforated viscus. DESCRIPTION OF PROCEDURE: The patient was brought to the operating room after receiving several liters of IV fluid for hydration. He received Zosyn as well. He was placed on the operating table in a supine position. He was placed under general endotracheal anesthesia. An orogastric tube was placed. A Sprague catheter was inserted. TEDs and sequentials were placed. A digital rectal examination revealed no palpable rectal lesion. A small amount of liquid brown stool was released after the exam. The patient's abdomen was prepped and draped in the usual sterile fashion. The abdomen was entered through a low midline incision extending to just above the level of the umbilicus. On opening the abdomen, a large amount of air was released. Inspection showed some purulent-appearing fluid scattered throughout the abdomen with some fibrinopurulent exudate located particularly in the right lower quadrant area. The cecum was found to be quite thickened and there was a perforation on the medial aspect with several small punctate areas suggesting areas of necrosis. The entire colon was quite thickened with hypertrophy of the muscles. A loop of terminal ileum was adherent down into the pelvis adjacent to the rectosigmoid region. Palpation revealed marked thickening and induration of the distal most sigmoid with some angulation and marked thickening of the rectosigmoid area with adherence to the retroperitoneum. Initially, several liters of warm saline were used to irrigate the abdomen and remove a large amount of contamination from the right upper quadrant, right lower quadrant and throughout the abdomen generally. The previously noted findings were identified. I divided some of the lateral attachments of the distal descending colon and sigmoid colon to be able to better examine the sigmoid and rectosigmoid areas. I also extended the incision slightly further inferiorly toward the pubic symphysis. A Bookwalter retractor was also obtained and used for better exposure. Some adhesions of the loop of terminal ileum into the pelvis were lysed, although there was some damage to the mesentery in this area. The cecum and ascending colon were then mobilized by dividing the lateral attachments and rotating these medially. This dissection was carried up about to the juncture with the proximal transverse colon. The terminal ileum was transected proximal to the area of mesenteric injury with a load of the 75 mm linear cutter stapler. Likewise, the colon in the distal ascending region was also transected. The colon was freed and passed off as a specimen marked terminal ileum, cecum and ascending colon. An ileocolic anastomosis was then performed using two firings of the linear cutter 75 stapler with green loads. The mesenteric defect was closed with a 0 Vicryl and several reinforcing sutures of 3-0 Vicryl were placed as well. I initially considered trying to resect the rectosigmoid area. It was not entirely clear that this represented a benign process and I did consider the possibility that this could represent cancer. However, there was marked erythema and inflammation, and I thought overall the appearance was more consistent with an infectious process. Also, because of the marked induration and inflammation I thought that the addition of trying to perform a low anterior resection in the acute setting with the large degree of contamination and inflammation would make this a much more involved procedure with a much higher risk of problems and elected instead to divide the sigmoid colon and create a colostomy. Therefore, the sigmoid colon was mobilized adequately to transect this just above the area of worse inflammation using the 75 mm stapler. The mesentery was mobilized somewhat to allow adequate length for creation of a colostomy. An opening was created through the abdominal wall in the left lower quadrant just below the level of the umbilicus. The end of the colon was delivered through the abdominal wall. The distal several centimeters of colon appeared quite dusky and so approximately 10-12 cm of the colon were resected. The abdomen was then thoroughly irrigated again with additional warm saline. The right ureter had been identified in the course of mobilizing the cecum and ascending colon and this was clearly preserved. The left ureter had not been seen. I elected to place a 19-Liberian Joseph in the pelvis and this was accomplished through a stab wound in the right lower quadrant. The peritoneum in the lower portion of the incision was closed with a running suture of 0 Vicryl. The fascia was then closed with a running suture of 2-0 PDS. The skin edges were loosely approximated with a skin stapler. The colostomy was then matured. The mucosa appeared pink and viable. There were some large diverticula noted and the wall overall was quite thickened with some muscular hypertrophy. Four corner everting sutures were placed and multiple additional sutures of 3-0 Vicryl were placed to complete the maturation. An ostomy appliance was placed, although this did overlap the midline skin incision over a wide area. A CHG OpSite was placed over the drain site and the exposed areas of the skin incision were covered with Prep Gauze. The patient tolerated the procedure surprisingly well. His urine output was adequate and his blood pressure was maintained without the need of any pressors. The orogastric tube was removed. I elected to continue his Sprague catheter. He was awakened in the operating room, extubated and moved to the recovery room in stable condition. GWEN
[2021-10-07] MEDS ORDERED: ACETAMINOPHEN TAB 650MG DOSE (2X325MG) PO PRN (15:15)
--- NOTE | 2021-10-07 16:12 | IPN ---
PROGRESS NOTE DATE: 10/07/2021 HISTORY: Patient is now postoperative day 1 from an exploratory laparotomy with a right colectomy and ileocolonic anastomosis and a partial sigmoid colectomy with end-colostomy for a rectosigmoid obstruction with perforation. He remains in the intensive care unit (ICU) for close monitoring. He has a Sprague catheter in place. Patient denies any nausea or vomiting. He has had some air and liquid stool from his ostomy. He is having little discomfort. Vital signs show that he has been afebrile over the past 24 hours. His pulse is in the 70s to low 90s, and his blood pressure is normal. His room air oxygenation is normal. Intake and output show that yesterday he has 6400 in with 1400 out. He had 800 mL of urine output and 445 of output from his right lower quadrant drain. PHYSICAL EXAMINATION: Shows that he is looking quite comfortable. He is alert and oriented. Heart exam shows a regular rhythm, and he is not tachycardic. The lungs show good bilateral breath sounds. The abdomen is thin and flat. His midportion of his incision is completely covered by a portion of his ostomy wafer. The stoma itself is pink and somewhat edematous. There is a small amount of liquid brown stool in the bag, and he reports that the bag was emptied of air earlier. He does have bowel sounds present. Sprague is draining moderately yellow-orange urine. LABORATORY STUDIES: Today show a white count of 9, hemoglobin 13, hematocrit 39, and a platelet count of 192,000. Differential count shows 86 neutrophils, 3 bands, 5 lymphocytes, and 6 monocytes. Chemistry profile shows a sodium of 142, potassium 3.8, chloride 113, CO2 of 23, BUN 24, and a creatinine of 1.2. Glucose was 88. IMPRESSION: Patient is doing well, now 1 day postoperative from his surgery. He denies any nausea or vomiting and has started to have some return of bowel function. His right lower quadrant drain, which is in the pelvis, is draining some serosanguineous fluid, mostly serous. The ostomy is beginning to function and looks viable. PLAN: Patient will be started on some clear liquids today. His Sprague catheter will be removed. He will be transferred to a medical/surgical floor. If he tolerates the clear liquids well, we will saline lock his intravenous (IV) and advance his diet. GWEN
--- NOTE | 2021-10-07 19:33 | IPN ---
PROGRESS NOTE DATE: 10/06/2021 HISTORY: The patient presented late on the 05 of October with abdominal pain and a CT scan showing evidence for a perforated viscus. His surgery which was an exploratory lap with a right colon resection with anastomosis and a partial sigmoid resection with end colostomy was completed just after 4:00 this morning. He is being monitored in the ICU. He has awakened nicely from the surgery. Vital signs show that the patient has remained afebrile since surgery. His pulse has come down generally into the 80's and 90's with an acceptable blood pressure. His oxygen saturation is excellent. Intake and output shows that he has had adequate urine output. His Sprague catheter remains in place. OBJECTIVE: PHYSICAL EXAMINATION: GENERAL APPEARANCE: The patient is awake and alert. ABDOMEN: His incision is clean. His ostomy is pink and edematous. The drain is putting out lightly to moderately pink fluid. LABORATORY STUDIES: From this morning after surgery labs showed a white count of 5, hemoglobin 16, hematocrit 48 and a platelet count of 210,000. His chemistry profile showed a sodium of 142, potassium 4.0, chloride 113, CO2 of 23, BUN of 15, creatinine 1, and a glucose of 114. Liver function tests were effectively normal with a total protein of 4.7 and an albumin of 2.4. IMPRESSION: The patient is doing well now, less than one day postop from his exploratory laparotomy for his perforated cecum. PLAN: The patient will remain on his Zosyn. The Sprague catheter will be continued until tomorrow and then potentially discontinued if his output remains good. I will cut his IV fluid rate back to 75 mL per hour, as I believe he has been adequately rehydrated. He is encouraged to be up out of bed. He was counseled regarding the findings at surgery and the need for subsequent follow up to evaluate whether his rectosigmoid obstruction is benign or malignant. GWEN
[2021-10-07] MEDS: NORCO, ANEXSIA 5/325MG TABLET (HYDROcodone/ACETAMINOPHEN) PO PRN (22:17)
[2021-10-08] VITALS: BP 156/81
[2021-10-08 04:30] VITALS: BP 144/72
[2021-10-08] MEDS: PIPERACILLIN/TAZOBACTAM SOD 3.375 GM in D5W MINI-BAG PLUS 50 ML IV SCH ×4 (05:18→23:34)
[2021-10-08 10:00] VITALS: BP 140/70
[2021-10-08 14:00] VITALS: BP 144/81
[2021-10-08] MEDS: ENOXAPARIN 40MG/0.4ML SYRINGE (J1650 PER 10MG) SC SCH (15:07)
[2021-10-08 18:00] VITALS: BP 150/85
[2021-10-08 20:25] VITALS: BP 140/84
[2021-10-08] MEDS: NORCO, ANEXSIA 5/325MG TABLET (HYDROcodone/ACETAMINOPHEN) PO PRN (20:43)
[2021-10-09] VITALS: BP 137/80
[2021-10-09 04:00] VITALS: BP 124/89
[2021-10-09] MEDS: PIPERACILLIN/TAZOBACTAM SOD 3.375 GM in D5W MINI-BAG PLUS 50 ML IV SCH ×4 (05:25→23:32)
[2021-10-09 06:00] VITALS: BP 124/89
[2021-10-09 07:49] LABS: BASO % 0.4 % (0.0-1.0); EOS # 0.2 10^3/uL (0.0-0.5); EOS % 2.7 % (0.0-3.0); HEMOGLOBIN 15.4 g/dl (13.5-17.5); LYMPH # 0.4 10^3/uL (1.5-5.0); LYMPH % 4.5 % (24.0-44.0); MEAN CORPUSCULAR HEMOGLOBIN 32.2 pg (27.0-33.0); MEAN CORPUSCULAR VOLUME 91.9 fl (80.0-96.0); MONO # 0.9 10^3/uL (0.0-0.8); MONO % 9.6 % (2.0-8.0); NEUTROPHILS # 7.4 10^3/uL (1.5-8.5); NEUTROPHILS % 82.4 % (36.0-66.0); PLATELET COUNT, AUTOMATED 268 10^3/uL (150-450); RED BLOOD COUNT 4.79 10^6/uL (4.30-6.10); WHITE BLOOD COUNT 8.9 10^3/uL (4.0-10.0)
[2021-10-09 08:10] LABS: ALT/SGPT 12 U/L (12-78); BILIRUBIN,TOTAL 0.4 MG/DL (0.2-1.0); BLOOD UREA NITROGEN 14 MG/DL (7-18); CALCIUM LEVEL 8.1 MG/DL (8.8-10.2); CARBON DIOXIDE LEVEL 26 MEQ/L (21-32); CHLORIDE LEVEL 109 MEQ/L (98-107); CREATININE FOR GFR 0.95 MG/DL (0.70-1.30); GLOMERULAR FILTRATION RATE > 60.0 (>49); GLUCOSE, FASTING 118 MG/DL (70-100); POTASSIUM SERUM 3.3 MEQ/L (3.5-5.1); SODIUM LEVEL 141 MEQ/L (136-145); TOTAL PROTEIN 4.4 GM/DL (6.4-8.2)
[2021-10-09 10:00] VITALS: BP 121/82
[2021-10-09] MEDS: ENOXAPARIN 40MG/0.4ML SYRINGE (J1650 PER 10MG) SC SCH (10:14)
[2021-10-09] MEDS: ONDANSETRON 4MG/2ML VIAL IV PRN (13:38)
[2021-10-09 14:00] VITALS: BP 121/86
[2021-10-09 22:00] VITALS: BP 124/82
[2021-10-10 06:00] VITALS: BP 127/79
[2021-10-10] MEDS: PIPERACILLIN/TAZOBACTAM SOD 3.375 GM in D5W MINI-BAG PLUS 50 ML IV SCH ×4 (06:01→22:45)
[2021-10-10] MEDS: ENOXAPARIN 40MG/0.4ML SYRINGE (J1650 PER 10MG) SC SCH (08:24)
[2021-10-10 10:00] VITALS: BP 127/78
--- NOTE | 2021-10-10 10:46 | IPN ---
PROGRESS NOTE DATE: 10/09/2021 HISTORY: The patient is now postop day 3 from an exploratory laparotomy with resection of the terminal ileum with cecum and ascending colon for a perforated cecum and peritonitis related to a rectosigmoid obstruction. He also had partial sigmoid resection with an end colostomy. There is a drain in the pelvis. Vital signs show that he has been afebrile over the past 24 hours. His pulse is in the low 100s generally, which is up slightly from previously. His blood pressure is good with good room air oxygen saturation. Intake and output shows that yesterday he had 1500 mL of intake with 1300 out. He had 680 mL of urine output with 250 mL of stool and 330 mL of output from his drain. PHYSICAL EXAMINATION: The patient is alert and oriented. Heart examination shows a regular rhythm and the lungs are clear. While I was visiting the patient, the nurse changed his colostomy appliance. His midline skin incision, which was partially covered by the stoma wafer, appears clean with no sign of infection. He had bowel sounds present in the abdomen. There is a very light yellow serous fluid draining from his right lower quadrant drain. The ostomy itself remains somewhat edematous, though I think improved and is clearly viable. LABORATORY DATA: Show a white count of 9, hemoglobin 15, hematocrit 44 and platelet count of 268. The differential count shows 82% neutrophils, 4% lymphocytes and 10% monocytes. He had a chemistry profile that showed sodium 141, potassium 3.3, chloride 109, Co2 of 26, BUN of 14, creatinine 0.9 and a glucose of 118. Total protein is 4.4 with an albumin now down to 2.0. IMPRESSION: 1. The patient is doing generally quite well 3 days postop from his exploratory laparotomy and bowel resection. He has a fair amount of drainage still from his pelvic drain. His urine output is adequate and his colostomy is functioning well now. PLAN: He will need to continue with some ostomy training. I will follow his midline wound. His drain will be continued for now and I anticipate that he should have decreasing outputs within the next couple of days. I will continue his Zosyn through at least 4 full days postop. [facility]
[2021-10-10 14:00] VITALS: BP 142/87
[2021-10-10 15:40] LABS: BLOOD UREA NITROGEN BF 14 MG/DL (NOT ESTABLISHED)
[2021-10-10 18:00] VITALS: BP 142/83
[2021-10-10 22:00] VITALS: BP 141/84
[2021-10-11 02:00] VITALS: BP 154/89
[2021-10-11 06:00] VITALS: BP 130/71
--- NOTE | 2021-10-11 06:14 | IPN ---
PROGRESS NOTE DATE: 10/10/2021 HISTORY: The patient is now postoperative day 4 from his exploratory laparotomy for a perforated cecum related to a rectosigmoid obstruction. He underwent a right colon resection with anastomosis and a partial sigmoid colectomy with end colostomy. He has been doing fairly well overall. He has a drain in his right lower quadrant. Vital signs show that he has been afebrile over the past 24 hours. His pulse has been running in the 80s over the last 24 hours or so. His blood pressure is good with a normal room air oxygen saturation. Intake and output show that yesterday he had only 200 mL recorded in although there is nothing recorded for oral intake. He had 1800 mL out, 300 mL of urine, 900 in stool and 640 from his right lower quadrant drain. PHYSICAL EXAMINATION: Patient is awake and alert. He appears quite comfortable. Heart and lung exams are unremarkable. The abdomen shows that his right lower quadrant drain is full with very light yellow, generally clear fluid. His midline incision, the portions that are visible, appears clean and dry. The ostomy bag has some air and stool within it, and the stoma itself appears healthy. IMPRESSION: The patient is doing quite well overall. He remains on Zosyn, which I have continued. I would normally consider stopping the antibiotic after four days since his exploratory laparotomy, but I suspect that there remains some ongoing infection in the rectosigmoid. We will need to do further testing to ensure that this is an infectious obstruction and not a malignant process. His right lower quadrant drain output had seemed to taper off but now is draining again quite a bit. Because this dissection was near the right ureter, I will obtain a fluid BUN just to confirm that there is no evidence of ureteral injury. PLAN: Patient is encouraged to be up out of bed and to eat as able. We will check a BUN on his right lower quadrant drain fluid. We will continue with his ostomy teaching. GWEN
[2021-10-11] MEDS: PIPERACILLIN/TAZOBACTAM SOD 3.375 GM in D5W MINI-BAG PLUS 50 ML IV SCH ×4 (06:26→23:32)
[2021-10-11] MEDS: ONDANSETRON 4MG/2ML VIAL IV PRN (08:24)
[2021-10-11] MEDS: ENOXAPARIN 40MG/0.4ML SYRINGE (J1650 PER 10MG) SC SCH (08:25)
[2021-10-11 14:00] VITALS: BP 131/66
--- NOTE | 2021-10-11 20:42 | IPN ---
PROGRESS NOTE DATE: 10/11/2021 HISTORY: The patient is now postop day number five from exploratory laparotomy for a perforated cecum associated with a rectosigmoid obstruction. He has a end sigmoid colostomy. He has one remaining drain in his pelvis entering the right lower quadrant. He has been on a regular diet and tolerating this well and is voiding without difficulty. Vital signs show that the patient has been afebrile over the past 24 hours. His pulse is generally in the 70's and 80's. Blood pressure is normal and his room air oxygen saturation is normal as well. Intake and output shows that he had 1,240 mL recorded in yesterday with 390 recorded out. He had 240 mL from his drain and 150 mL of urine output recorded, although I suspect he was voiding in the restroom. OBJECTIVE: PHYSICAL EXAMINATION: GENERAL APPEARANCE: The patient is lying quietly in the hospital bed. He is alert and oriented and appears comfortable. SKIN: Warm and dry. HEART: Regular rhythm. LUNGS: Clear. ABDOMEN: Thin and flat. He has some very light yellow fluid in his drain. His ostomy appears pink and is functioning well. His midline incision is closed with audie and appears clean and without evidence of infection. Calves are nontender to palpation. LABORATORY STUDIES: The patient has had no new blood work ordered. The BUN ordered on his drain output yesterday was 14, which is equal to his serum level and is not suggestive of any sort of urine leak. IMPRESSION: The patient is doing well now five days postop. His ostomy is functioning well and his incision looks good. PLAN: 1. Continue ostomy teaching. 2. I will continue his antibiotic for now. 3. A CEA level will be ordered in the morning as well as a repeat CBC with a diff and a chemistry profile. [facility]
[2021-10-11 22:04] VITALS: BP 143/78
[2021-10-12] VITALS (7 sets, daily range): BP systolic 132–153; BP diastolic 67–86
[2021-10-12] MEDS: PIPERACILLIN/TAZOBACTAM SOD 3.375 GM in D5W MINI-BAG PLUS 50 ML IV SCH ×4 (04:34→23:09)
[2021-10-12 08:55] LABS: BASO % 0.5 % (0.0-1.0); EOS # 0.2 10^3/uL (0.0-0.5); HEMATOCRIT 38.3 % (42.0-52.0); HEMOGLOBIN 12.9 g/dl (13.5-17.5); LYMPH # 0.6 10^3/uL (1.5-5.0); LYMPH % 11.2 % (24.0-44.0); MEAN CORPUSCULAR HEMOGLOBIN 31.2 pg (27.0-33.0); MEAN CORPUSCULAR HGB CONC 33.7 g/dl (32.0-36.5); MEAN CORPUSCULAR VOLUME 92.7 fl (80.0-96.0); MONO % 18.2 % (2.0-8.0); NEUTROPHILS # 3.7 10^3/uL (1.5-8.5); NEUTROPHILS % 65.2 % (36.0-66.0); PLATELET COUNT, AUTOMATED 293 10^3/uL (150-450); RED BLOOD COUNT 4.13 10^6/uL (4.30-6.10); WHITE BLOOD COUNT 5.7 10^3/uL (4.0-10.0)
[2021-10-12] MEDS: ONDANSETRON 4MG/2ML VIAL IV PRN (09:17)
[2021-10-12] MEDS: ENOXAPARIN 40MG/0.4ML SYRINGE (J1650 PER 10MG) SC SCH (09:17)
[2021-10-12 10:04] LABS: ALT/SGPT 25 U/L (12-78); BILIRUBIN,TOTAL 0.3 MG/DL (0.2-1.0); BLOOD UREA NITROGEN 10 MG/DL (7-18); CALCIUM LEVEL 8.1 MG/DL (8.8-10.2); CARBON DIOXIDE LEVEL 28 MEQ/L (21-32); CHLORIDE LEVEL 108 MEQ/L (98-107); CREATININE FOR GFR 0.88 MG/DL (0.70-1.30); GLOMERULAR FILTRATION RATE > 60.0 (>49); GLUCOSE, FASTING 95 MG/DL (70-100); POTASSIUM SERUM 3.3 MEQ/L (3.5-5.1); SODIUM LEVEL 142 MEQ/L (136-145); TOTAL PROTEIN 4.6 GM/DL (6.4-8.2)
[2021-10-12] MEDS: BACITRACIN OINTMENT 30GM TUBE TOP SCH (14:52)
[2021-10-13 02:00] VITALS: BP 143/80
[2021-10-13] MEDS: PIPERACILLIN/TAZOBACTAM SOD 3.375 GM in D5W MINI-BAG PLUS 50 ML IV SCH ×2 (05:11→11:29)
[2021-10-13 06:00] VITALS: BP 139/79
[2021-10-13] MEDS: ENOXAPARIN 40MG/0.4ML SYRINGE (J1650 PER 10MG) SC SCH (08:33)
[2021-10-13] MEDS: BACITRACIN OINTMENT 30GM TUBE TOP SCH (08:34)
[2021-10-13 10:00] VITALS: BP 142/79
[2021-10-13 14:00] VITALS: BP 152/92
--- NOTE | 2021-10-13 20:10 | IPN ---
PROGRESS NOTE DATE: 10/12/2021 HISTORY: The patient is postop day number six from exploratory laparotomy for a perforated cecum with diffuse peritonitis secondary to a rectosigmoid obstruction. His colostomy in the left abdomen is draining well. He has a persistent Joseph drain in the pelvis through an incision in the right lower quadrant. He has been eating a regular diet and voiding without difficulty. Vital signs show that he has been afebrile over the past 24 hours. His pulse is in the 60's and 70's and his blood pressure is normal. Intake and output show that yesterday he had 1,800 in with 660 recorded out. I suspect his urine output is underestimated by him going to the bathroom. His drain had 285 out yesterday and is having less this morning. OBJECTIVE: PHYSICAL EXAMINATION: GENERAL APPEARANCE: The patient is lying quietly in the hospital bed. He is alert and oriented. ABDOMEN: The stoma looks pink and healthy. His midline incision is closed with audie and without evidence of infection. His drain has a small amount of light yellow serous fluid. The abdomen is otherwise soft and without any undue tenderness. HEART: Unremarkable. LUNGS: Unremarkable. LABORATORY STUDIES: Today labs show a white count of 6, hemoglobin of 13, hematocrit 38 and a platelet count of 293,000. His differential count shows 65% neutrophils, 11 lymphocytes, 18 monocytes and 4 eosinophils. Chemistry profile shows sodium 142, potassium 3.3, chloride 108, CO2 of 28, BUN of 10, creatinine 0.9 and a glucose of 95. Protein is 4.6 with an albumin of 2.2. and his protein and albumin have not been rising as quickly as I might have anticipated. His carcinoembryonic antigen is only 2.2. IMPRESSION: The patient is doing very well, now day six from his exploratory laparotomy. PLAN: I will have the patient's drain removed today as the output has diminished and the BUN was negative. His ostomy teaching continues. I will anticipate discharge in the next 1-2 days. He will need a visiting nurse referral for assistance in managing his new colostomy.
[2021-10-13 22:00] VITALS: BP 103/68
[2021-10-14 06:00] VITALS: BP 109/64
--- NOTE | 2021-10-14 06:29 | IPN ---
PROGRESS NOTE DATE: 10/13/2021 SUBJECTIVE: Patient is postop day #7 from his exploratory laparotomy for a cecal perforation with diffuse peritonitis secondary to a rectosigmoid obstruction. His colostomy has been functioning well. He is eating well by his report and voiding without difficulty. His drain was removed yesterday and there has been no reported leakage at the site. Vital signs shows that he has been afebrile over the past 24 hours with a pulse in the 60s and 70s and a normal blood pressure. His room air oxygen saturations are normal. Intake and output shows that yesterday he had 1030 in with 965 recorded out. He had 480 ml of urine output reported yesterday. OBJECTIVE: Patient is awake and appears quite comfortable. He is alert. He reports that he has been up ambulating although I have always found him in his bed. Skin is warm and dry. Heart and lung exams are unremarkable. The abdomen is flat. His midline incision is closed with audie and looks clean. The ostomy has lost most of its swelling and is much smaller. His ostomy appliance was just changed today and the site looks good. His drain site is dressed. The abdomen is soft without any undue tenderness. Calves are nontender to palpation and there is no peripheral edema. LABORATORY DATA: He has no labs today. IMPRESSION: Patient is doing very well at this point. I strongly suspect that his obstruction is secondary to inflammatory problems from diverticulitis and not from tumor but we do need to attempt an endoscopic exam at some point here in the near future. PLAN: Patient's antibiotics will be stopped today. He is encouraged to be up out of bed ambulating. He has been doing his ostomy teaching and we will aim for discharge possibly as early as tomorrow, the . We will arrange a visiting nurse to assist him in working with his new ostomy at home. We will also need to ensure that he has supplies available to him. I will check his CBC and chemistries again in the morning.
[2021-10-14 06:37] LABS: BASO % 0.6 % (0.0-1.0); EOS # 0.2 10^3/uL (0.0-0.5); EOS % 2.3 % (0.0-3.0); HEMATOCRIT 37.9 % (42.0-52.0); HEMOGLOBIN 13.1 g/dl (13.5-17.5); LYMPH # 0.9 10^3/uL (1.5-5.0); LYMPH % 12.9 % (24.0-44.0); MEAN CORPUSCULAR HEMOGLOBIN 31.9 pg (27.0-33.0); MEAN CORPUSCULAR HGB CONC 34.6 g/dl (32.0-36.5); MEAN CORPUSCULAR VOLUME 92.2 fl (80.0-96.0); MONO # 0.9 10^3/uL (0.0-0.8); MONO % 14.1 % (2.0-8.0); NEUTROPHILS # 4.6 10^3/uL (1.5-8.5); NEUTROPHILS % 69.6 % (36.0-66.0); PLATELET COUNT, AUTOMATED 323 10^3/uL (150-450); RED BLOOD COUNT 4.11 10^6/uL (4.30-6.10); WHITE BLOOD COUNT 6.6 10^3/uL (4.0-10.0)
[2021-10-14 07:06] LABS: ALT/SGPT 24 U/L (12-78); BILIRUBIN,TOTAL 0.2 MG/DL (0.2-1.0); BLOOD UREA NITROGEN 9 MG/DL (7-18); CALCIUM LEVEL 8.3 MG/DL (8.8-10.2); CARBON DIOXIDE LEVEL 28 MEQ/L (21-32); CHLORIDE LEVEL 107 MEQ/L (98-107); CREATININE FOR GFR 0.86 MG/DL (0.70-1.30); GLOMERULAR FILTRATION RATE > 60.0 (>49); GLUCOSE, FASTING 95 MG/DL (70-100); POTASSIUM SERUM 3.2 MEQ/L (3.5-5.1); SODIUM LEVEL 140 MEQ/L (136-145); TOTAL PROTEIN 5.1 GM/DL (6.4-8.2)
[2021-10-14 08:50] VITALS: BP 159/87
[2021-10-14] MEDS: ENOXAPARIN 40MG/0.4ML SYRINGE (J1650 PER 10MG) SC SCH (08:50)
[2021-10-14] MEDS: BACITRACIN OINTMENT 30GM TUBE TOP SCH (08:51)
[2021-10-14 10:00] VITALS: BP 127/79
--- NOTE | 2021-10-15 20:00 | IPN ---
PROGRESS NOTE DATE: 10/14/2021 HISTORY: The patient is postop day eight from exploratory laparotomy for a perforated cecum secondary to a rectosigmoid obstruction. He has been doing well over the last couple days. His drain was removed 2 days ago and the drain site has largely dried up. His ostomy seems to be working well. He reports that he is eating well with no nausea rule out vomiting and he denies any significant pain. Vital signs show that the patient has been afebrile over the past 24 hours. His pulse is in the 60's to low 80's and his blood pressure is good. Room air oxygen saturations are normal. Intake and output show that yesterday he had poorly recorded intake and 320 mL of urine recorded although he has been getting up to void in the bathroom. OBJECTIVE: PHYSICAL EXAMINATION: GENERAL APPEARANCE: The patient is lying quietly in the bed, looking quite comfortable. He is alert and oriented. HEART: Regular rhythm. LUNGS: Clear. ABDOMEN: Flat. His drain site is dry. His midline incision has some audie in place and is clean and without evidence of infection. The ostomy is maturing nicely and functioning. He has active bowel sounds and the abdomen is soft without any undue tenderness. LABORATORY STUDIES: White count of 7, hemoglobin 13, hematocrit 38 and a platelet count of 323,000. His differential count shows 70% neutrophils, 13% lymphocytes and 14% monocytes. Chemistry profile shows sodium of 140, potassium 3.2, chloride 107, CO2 of 28, BUN of 9, creatinine 0.9 and a glucose of 95. Liver function tests are normal with an alkaline phosphatase which is actually low at 44. Total protein is 5.1 with an albumin of 2.0. His CEA yesterday was normal at 2.2. IMPRESSION: The patient is doing well now 8 days postop from exploratory laparotomy with right partial colectomy with ileocolostomy and a descending colostomy. PLAN: The patient will be discharged home today. I will not continue any antibiotics. He is not taking any prescription pain medications, and I will not provide him a prescription. He was counseled to avoid any strenuous physical activity for at least the next 6 weeks. I will plan on seeing the patient back in the office in about 2 weeks. We will provide a visiting nurse referral for assistance in managing his colostomy. He can take a diet as tolerated. He can shower as desired. I will have the nurse remove his surgical audie before discharge. He will continue his Lisinopril as before admission.
== END 2021-10-14 15:20 | disposition home health service (06) | DRG 330 ==
LOC: M ED 20:31 → M ED INP 10-06 00:05 → M PCU 10-06 08:45 → M MSPAV 10-08 03:54
PROVIDERS: ADMIT Surgery; ATTEND Surgery
PROC: 0DBB0ZZ Excision of Ileum, Open Approach (ICD-10-PCS; 2021-10-06)
PROC: 0DBK0ZZ Excision of Ascending Colon, Open Approach (ICD-10-PCS; 2021-10-06)
PROC: 0D1N0J4 Bypass Sigmoid Colon to Cutaneous with Synthetic Substitute, Open Approach (ICD-10-PCS; 2021-10-06)
PROC: 0DBN0ZZ Excision of Sigmoid Colon, Open Approach (ICD-10-PCS; principal; 2021-10-06 00:09)
DX: K35.32 Acute appendicitis with perforation, localized peritonitis, and gangrene, without abscess (principal); K56.609 Unspecified intestinal obstruction, unspecified as to partial versus complete obstruction

== ENCOUNTER 2021-10-24 11:23 | Inpatient (IN) | payer MEDICARE ==
[~2021-10-24] VITALS: Ht 175.3 cm; Wt 50.8 kg
[~2021-10-24 11:23] MED LIST changes: -LEVO500T3 PO; +LEVO500T4 PO; +LISI20TA33 PO; +METR-265 PO
[2021-10-24] MEDS ORDERED: NS 1,000 ML IV ONE (12:45)
[2021-10-24 13:01] LABS: BASO % 0.3 % (0.0-1.0); EOS % 0.1 % (0.0-3.0); HEMATOCRIT 44.1 % (42.0-52.0); HEMOGLOBIN 15.2 g/dl (13.5-17.5); LYMPH # 0.6 10^3/uL (1.5-5.0); LYMPH % 5.1 % (24.0-44.0); MEAN CORPUSCULAR HEMOGLOBIN 31.3 pg (27.0-33.0); MEAN CORPUSCULAR HGB CONC 34.5 g/dl (32.0-36.5); MEAN CORPUSCULAR VOLUME 90.7 fl (80.0-96.0); MONO # 0.9 10^3/uL (0.0-0.8); MONO % 8.3 % (2.0-8.0); NEUTROPHILS # 9.4 10^3/uL (1.5-8.5); NEUTROPHILS % 85.6 % (36.0-66.0); PLATELET COUNT, AUTOMATED 362 10^3/uL (150-450); RED BLOOD COUNT 4.86 10^6/uL (4.30-6.10)
[2021-10-24 13:23] LABS: ALBUMIN 2.7 GM/DL (3.2-5.2); ALT/SGPT 26 U/L (12-78); BILIRUBIN,DIRECT < 0.1 MG/DL (0.0-0.2); BILIRUBIN,TOTAL 0.2 MG/DL (0.2-1.0); BLOOD UREA NITROGEN 23 MG/DL (7-18); CARBON DIOXIDE LEVEL 28 MEQ/L (21-32); CHLORIDE LEVEL 104 MEQ/L (98-107); CREATININE FOR GFR 1.43 MG/DL (0.70-1.30); GLOMERULAR FILTRATION RATE 52.2 (>49); GLUCOSE, FASTING 124 MG/DL (70-100); LIPASE 76 U/L (73-393); POTASSIUM SERUM 4.8 MEQ/L (3.5-5.1); SODIUM LEVEL 138 MEQ/L (136-145); TOTAL PROTEIN 5.8 GM/DL (6.4-8.2)
[2021-10-24 14:06] LABS: RSV AMPLIFICATION NEGATIVE (NEGATIVE)
[2021-10-24] MEDS ORDERED: ISOVUE-370 76% 100ML VIAL As Ordered ONE (14:12)
[2021-10-24] MEDS ORDERED: HOME MED LIST COMPLETE! XX SCH (15:20)
[2021-10-24] MEDS ORDERED: CHLORASEPTIC SPRAY MT PRN (16:00)
[2021-10-24 17:24] VITALS: BP 113/71
[2021-10-24] MEDS: LR 1,000 ML IV SCH (17:29)
[2021-10-24] MEDS ORDERED: REMDESIVIR 200 MG in NS 250 ML IV ONE (18:00)
[2021-10-24] MEDS ORDERED: MORPHINE 2 MG/ML 1ML VIAL (J2270) IV PRN ×2 (18:25)
[2021-10-24] MEDS ORDERED: ONDANSETRON 4MG/2ML VIAL IV PRN (18:25)
[2021-10-24 20:00] VITALS: BP 158/92
[2021-10-24] MEDS ORDERED: SODIUM CHLORIDE 0.9% INJ 10 ML SYR IV ONE (20:00)
[2021-10-25] MEDS: LR 1,000 ML IV SCH ×4 (00:09→23:35)
[2021-10-25 04:30] VITALS: BP 149/96
[2021-10-25 07:42] LABS: HEMATOCRIT 40.9 % (42.0-52.0); MEAN CORPUSCULAR HEMOGLOBIN 31.6 pg (27.0-33.0); MEAN CORPUSCULAR HGB CONC 34.2 g/dl (32.0-36.5); MEAN CORPUSCULAR VOLUME 92.3 fl (80.0-96.0); PLATELET COUNT, AUTOMATED 302 10^3/uL (150-450); RED BLOOD COUNT 4.43 10^6/uL (4.30-6.10); WHITE BLOOD COUNT 7.4 10^3/uL (4.0-10.0)
[2021-10-25 08:05] LABS: ALBUMIN 2.4 GM/DL (3.2-5.2); ALT/SGPT 19 U/L (12-78); BILIRUBIN,DIRECT < 0.1 MG/DL (0.0-0.2); BILIRUBIN,TOTAL 0.2 MG/DL (0.2-1.0); BLOOD UREA NITROGEN 20 MG/DL (7-18); CALCIUM LEVEL 8.6 MG/DL (8.8-10.2); CARBON DIOXIDE LEVEL 27 MEQ/L (21-32); CHLORIDE LEVEL 106 MEQ/L (98-107); CREATININE FOR GFR 1.07 MG/DL (0.70-1.30); GLOMERULAR FILTRATION RATE > 60.0 (>49); GLUCOSE, FASTING 112 MG/DL (70-100); MAGNESIUM LEVEL 2.1 MG/DL (1.8-2.4); POTASSIUM SERUM 4.2 MEQ/L (3.5-5.1); SODIUM LEVEL 138 MEQ/L (136-145); TOTAL PROTEIN 5.5 GM/DL (6.4-8.2)
[2021-10-25 13:45] VITALS: BP 165/93
[2021-10-25] MEDS ORDERED: amLODIPine 5 MG TAB PO ONE (14:10)
[2021-10-25] MEDS: REMDESIVIR 100 MG in NS 250 ML IV SCH (17:39)
[2021-10-25] MEDS: SODIUM CHLORIDE 0.9% INJ 10 ML SYR IV SCH (19:09)
[2021-10-25 20:00] VITALS: BP 170/98
[2021-10-25] MEDS ORDERED: **hydrALAZINE** 10 MG TAB PO ONE (23:00)
[2021-10-26 04:00] VITALS: BP 159/90
[2021-10-26 06:56] LABS: HEMATOCRIT 41.7 % (42.0-52.0); HEMOGLOBIN 14.2 g/dl (13.5-17.5); MEAN CORPUSCULAR HEMOGLOBIN 31.3 pg (27.0-33.0); MEAN CORPUSCULAR HGB CONC 34.1 g/dl (32.0-36.5); MEAN CORPUSCULAR VOLUME 91.9 fl (80.0-96.0); PLATELET COUNT, AUTOMATED 286 10^3/uL (150-450); RED BLOOD COUNT 4.54 10^6/uL (4.30-6.10); WHITE BLOOD COUNT 6.4 10^3/uL (4.0-10.0)
[2021-10-26 07:19] LABS: BLOOD UREA NITROGEN 16 MG/DL (7-18); CALCIUM LEVEL 8.6 MG/DL (8.8-10.2); CARBON DIOXIDE LEVEL 27 MEQ/L (21-32); CHLORIDE LEVEL 106 MEQ/L (98-107); CREATININE FOR GFR 0.87 MG/DL (0.70-1.30); GLOMERULAR FILTRATION RATE > 60.0 (>49); GLUCOSE, FASTING 98 MG/DL (70-100); POTASSIUM SERUM 4.2 MEQ/L (3.5-5.1); SODIUM LEVEL 141 MEQ/L (136-145)
[2021-10-26] MEDS: LR 1,000 ML IV SCH (13:40)
[2021-10-26 14:20] VITALS: BP 160/87
[2021-10-26] MEDS ORDERED: LIDOCAINE 1% MDV 20ML VIAL As Ordered ONE (16:12)
[2021-10-26] MEDS ORDERED: amLODIPine 5 MG TAB PO ONE (17:15)
[2021-10-26] MEDS ORDERED: FAT EMULSION IV 20% 500 ML IV SCH (18:00)
[2021-10-26] MEDS ORDERED: AMINO AC/ELECTROLYTE/DEX/CALC 2,000 ML IV SCH (18:00)
[2021-10-26] MEDS: REMDESIVIR 100 MG in NS 250 ML IV SCH (18:36)
[2021-10-26] MEDS: SODIUM CHLORIDE 0.9% INJ 10 ML SYR IV SCH (19:00)
[2021-10-26 20:00] VITALS: BP 160/88
[2021-10-26] MEDS ORDERED: SODIUM CHLORIDE 0.9% INJ 10 ML SYR IV PRN (20:15)
[2021-10-27] MEDS: ACETAMINOPHEN TAB 650MG DOSE (2X325MG) PO PRN ×2 (01:08→07:42)
[2021-10-27 04:00] VITALS: BP 112/65
[2021-10-27] MEDS: SODIUM CHLORIDE 0.9% INJ 10 ML SYR IV SCH ×2 (05:12→18:23)
[2021-10-27 06:11] LABS: HEMATOCRIT 36.2 % (42.0-52.0); HEMOGLOBIN 12.5 g/dl (13.5-17.5); MEAN CORPUSCULAR HEMOGLOBIN 31.6 pg (27.0-33.0); MEAN CORPUSCULAR HGB CONC 34.5 g/dl (32.0-36.5); MEAN CORPUSCULAR VOLUME 91.4 fl (80.0-96.0); PLATELET COUNT, AUTOMATED 270 10^3/uL (150-450); RED BLOOD COUNT 3.96 10^6/uL (4.30-6.10); WHITE BLOOD COUNT 6.1 10^3/uL (4.0-10.0)
[2021-10-27 06:29] LABS: BLOOD UREA NITROGEN 15 MG/DL (7-18); CALCIUM LEVEL 8.2 MG/DL (8.8-10.2); CARBON DIOXIDE LEVEL 28 MEQ/L (21-32); CHLORIDE LEVEL 104 MEQ/L (98-107); CREATININE FOR GFR 0.75 MG/DL (0.70-1.30); GLOMERULAR FILTRATION RATE > 60.0 (>49); GLUCOSE, FASTING 149 MG/DL (70-100); MAGNESIUM LEVEL 1.8 MG/DL (1.8-2.4); POTASSIUM SERUM 3.7 MEQ/L (3.5-5.1); SODIUM LEVEL 139 MEQ/L (136-145)
[2021-10-27] MEDS: amLODIPine 5 MG TAB PO SCH (07:41)
[2021-10-27 13:49] LABS: HEMATOCRIT 39.2 % (42.0-52.0); HEMOGLOBIN 13.4 g/dl (13.5-17.5); MEAN CORPUSCULAR HEMOGLOBIN 31.3 pg (27.0-33.0); MEAN CORPUSCULAR HGB CONC 34.2 g/dl (32.0-36.5); MEAN CORPUSCULAR VOLUME 91.6 fl (80.0-96.0); PLATELET COUNT, AUTOMATED 260 10^3/uL (150-450); RED BLOOD COUNT 4.28 10^6/uL (4.30-6.10); WHITE BLOOD COUNT 7.1 10^3/uL (4.0-10.0)
[2021-10-27 13:55] LABS: INR 1.07; PROTHROMBIN TIME 14.3 SECONDS (12.7-14.5)
[2021-10-27 13:56] LABS: PARTIAL THROMBOPLASTIN TIME 36.4 SECONDS (25.9-37.0)
[2021-10-27 14:12] LABS: D-DIMER QUANT 3591.17 ng/ml (<500)
[2021-10-27 14:41] VITALS: BP 160/80
[2021-10-27] MEDS ORDERED: FAT EMULSION IV 20% 500 ML IV SCH (18:00)
[2021-10-27] MEDS ORDERED: AMINO AC/ELECTROLYTE/DEX/CALC 2,000 ML IV SCH (18:00)
[2021-10-27 20:00] VITALS: BP 158/87
[2021-10-27] MEDS: HEPARIN SOD (PORCINE) 5000UNITS/ML 1ML VIAL/SYRINGE SQ SCH (20:57)
[2021-10-28 04:00] VITALS: BP 159/89
[2021-10-28] MEDS: SODIUM CHLORIDE 0.9% INJ 10 ML SYR IV SCH ×2 (05:08→18:32)
[2021-10-28] MEDS: ACETAMINOPHEN TAB 650MG DOSE (2X325MG) PO PRN ×2 (06:06→20:12)
[2021-10-28 08:19] LABS: HEMATOCRIT 38.4 % (42.0-52.0); HEMOGLOBIN 13.2 g/dl (13.5-17.5); MEAN CORPUSCULAR HEMOGLOBIN 31.4 pg (27.0-33.0); MEAN CORPUSCULAR HGB CONC 34.4 g/dl (32.0-36.5); MEAN CORPUSCULAR VOLUME 91.4 fl (80.0-96.0); PLATELET COUNT, AUTOMATED 259 10^3/uL (150-450); WHITE BLOOD COUNT 7.1 10^3/uL (4.0-10.0)
[2021-10-28] MEDS: HEPARIN SOD (PORCINE) 5000UNITS/ML 1ML VIAL/SYRINGE SQ SCH ×2 (08:23→20:12)
[2021-10-28] MEDS: amLODIPine 5 MG TAB PO SCH (08:23)
[2021-10-28 08:51] LABS: BLOOD UREA NITROGEN 18 MG/DL (7-18); CALCIUM LEVEL 8.6 MG/DL (8.8-10.2); CARBON DIOXIDE LEVEL 26 MEQ/L (21-32); CHLORIDE LEVEL 101 MEQ/L (98-107); CREATININE FOR GFR 0.75 MG/DL (0.70-1.30); GLOMERULAR FILTRATION RATE > 60.0 (>49); GLUCOSE, FASTING 118 MG/DL (70-100); MAGNESIUM LEVEL 1.9 MG/DL (1.8-2.4); POTASSIUM SERUM 4.2 MEQ/L (3.5-5.1); SODIUM LEVEL 136 MEQ/L (136-145)
[2021-10-28 14:00] VITALS: BP 137/78
[2021-10-28] MEDS ORDERED: MULTIVITAMIN -ADULT INJECTION 10 ML, ZINC/COPPER/MANGANESE/SELENIUM 1 ML in AMINO AC/EL... IV SCH (18:00)
[2021-10-28] MEDS ORDERED: FAT EMULSION IV 20% 500 ML IV SCH (18:00)
[2021-10-28 20:00] VITALS: BP 120/81
[2021-10-29] MEDS: SODIUM CHLORIDE 0.9% INJ 10 ML SYR IV SCH ×2 (04:21→17:50)
[2021-10-29 04:22] VITALS: BP 116/66
[2021-10-29 06:16] LABS: HEMATOCRIT 38.3 % (42.0-52.0); HEMOGLOBIN 13.3 g/dl (13.5-17.5); MEAN CORPUSCULAR HEMOGLOBIN 31.5 pg (27.0-33.0); MEAN CORPUSCULAR HGB CONC 34.7 g/dl (32.0-36.5); MEAN CORPUSCULAR VOLUME 90.8 fl (80.0-96.0); PLATELET COUNT, AUTOMATED 255 10^3/uL (150-450); RED BLOOD COUNT 4.22 10^6/uL (4.30-6.10)
[2021-10-29 06:45] LABS: BLOOD UREA NITROGEN 19 MG/DL (7-18); CALCIUM LEVEL 8.9 MG/DL (8.8-10.2); CARBON DIOXIDE LEVEL 31 MEQ/L (21-32); CHLORIDE LEVEL 100 MEQ/L (98-107); CREATININE FOR GFR 0.79 MG/DL (0.70-1.30); GLOMERULAR FILTRATION RATE > 60.0 (>49); GLUCOSE, FASTING 125 MG/DL (70-100); MAGNESIUM LEVEL 2.1 MG/DL (1.8-2.4); POTASSIUM SERUM 3.4 MEQ/L (3.5-5.1); SODIUM LEVEL 137 MEQ/L (136-145)
[2021-10-29 08:42] VITALS: BP 114/75
[2021-10-29] MEDS: HEPARIN SOD (PORCINE) 5000UNITS/ML 1ML VIAL/SYRINGE SQ SCH ×2 (08:42→22:14)
[2021-10-29] MEDS: amLODIPine 5 MG TAB PO SCH (08:42)
[2021-10-29] MEDS: ACETAMINOPHEN TAB 650MG DOSE (2X325MG) PO PRN (08:53)
[2021-10-29 14:00] VITALS: BP 111/62
[2021-10-29] MEDS ORDERED: AMINO AC/ELECTROLYTE/DEX/CALC 2,000 ML IV SCH (18:00)
[2021-10-29] MEDS ORDERED: FAT EMULSION IV 20% 500 ML IV SCH (18:00)
[2021-10-29 20:00] VITALS: BP 106/70
[2021-10-30 04:00] VITALS: BP 102/67
[2021-10-30] MEDS: SODIUM CHLORIDE 0.9% INJ 10 ML SYR IV SCH ×2 (06:20→17:51)
[2021-10-30 07:44] LABS: HEMATOCRIT 41.8 % (42.0-52.0); HEMOGLOBIN 14.4 g/dl (13.5-17.5); MEAN CORPUSCULAR HEMOGLOBIN 31.1 pg (27.0-33.0); MEAN CORPUSCULAR HGB CONC 34.4 g/dl (32.0-36.5); MEAN CORPUSCULAR VOLUME 90.3 fl (80.0-96.0); PLATELET COUNT, AUTOMATED 325 10^3/uL (150-450); RED BLOOD COUNT 4.63 10^6/uL (4.30-6.10); WHITE BLOOD COUNT 8.8 10^3/uL (4.0-10.0)
[2021-10-30 08:05] LABS: BLOOD UREA NITROGEN 44 MG/DL (7-18); CALCIUM LEVEL 9.6 MG/DL (8.8-10.2); CARBON DIOXIDE LEVEL 37 MEQ/L (21-32); CHLORIDE LEVEL 94 MEQ/L (98-107); CREATININE FOR GFR 0.99 MG/DL (0.70-1.30); GLOMERULAR FILTRATION RATE > 60.0 (>49); GLUCOSE, FASTING 111 MG/DL (70-100); MAGNESIUM LEVEL 2.6 MG/DL (1.8-2.4); POTASSIUM SERUM 3.8 MEQ/L (3.5-5.1); SODIUM LEVEL 137 MEQ/L (136-145)
[2021-10-30] MEDS ORDERED: GASTROGRAFIN SOLUTION 30ML (Q9963) As Ordered ONE (08:52)
[2021-10-30] MEDS: amLODIPine 5 MG TAB PO SCH (09:00)
[2021-10-30] MEDS: HEPARIN SOD (PORCINE) 5000UNITS/ML 1ML VIAL/SYRINGE SQ SCH ×2 (09:54→21:00)
[2021-10-30] MEDS ORDERED: AMINO AC/ELECTROLYTE/DEX/CALC 1,000 ML IV SCH (11:00)
[2021-10-30 16:00] VITALS: BP 102/57
[2021-10-30] MEDS ORDERED: FAT EMULSION IV 20% 500 ML IV SCH (18:00)
[2021-10-30] MEDS ORDERED: MULTIVITAMIN -ADULT INJECTION 10 ML, ZINC/COPPER/MANGANESE/SELENIUM 1 ML in AMINO AC/EL... IV SCH (18:00)
[2021-10-30 20:00] VITALS: BP 99/70
[2021-10-30] MEDS: ACETAMINOPHEN TAB 650MG DOSE (2X325MG) PO PRN (22:23)
[2021-10-31 04:00] VITALS: BP 101/68
[2021-10-31] MEDS: SODIUM CHLORIDE 0.9% INJ 10 ML SYR IV SCH ×2 (06:07→17:36)
[2021-10-31 08:54] LABS: HEMATOCRIT 42.9 % (42.0-52.0); HEMOGLOBIN 14.7 g/dl (13.5-17.5); MEAN CORPUSCULAR HEMOGLOBIN 31.3 pg (27.0-33.0); MEAN CORPUSCULAR HGB CONC 34.3 g/dl (32.0-36.5); MEAN CORPUSCULAR VOLUME 91.3 fl (80.0-96.0); PLATELET COUNT, AUTOMATED 359 10^3/uL (150-450); WHITE BLOOD COUNT 11.8 10^3/uL (4.0-10.0)
[2021-10-31 09:30] LABS: CALCIUM LEVEL 9.6 MG/DL (8.8-10.2); CREATININE FOR GFR 3.12 MG/DL (0.70-1.30); GLOMERULAR FILTRATION RATE 21.2 (>49); POTASSIUM SERUM 3.6 MEQ/L (3.5-5.1)
[2021-10-31] MEDS: HEPARIN SOD (PORCINE) 5000UNITS/ML 1ML VIAL/SYRINGE SQ SCH ×2 (09:55→20:18)
[2021-10-31 14:00] VITALS: BP 118/66
[2021-10-31 16:46] LABS: CALCIUM LEVEL 9.3 MG/DL (8.8-10.2); CREATININE FOR GFR 2.73 MG/DL (0.70-1.30); GLOMERULAR FILTRATION RATE 24.8 (>49); POTASSIUM SERUM 3.5 MEQ/L (3.5-5.1)
[2021-10-31] MEDS: NS 1,000 ML IV SCH (17:31)
[2021-10-31 20:00] VITALS: BP 113/58
[2021-11-01] MEDS: SODIUM CHLORIDE 0.9% INJ 10 ML SYR IV SCH ×2 (03:47→17:26)
[2021-11-01] MEDS: NS 1,000 ML IV SCH (03:48)
[2021-11-01 04:09] VITALS: BP 99/67
[2021-11-01] MEDS: HEPARIN SOD (PORCINE) 5000UNITS/ML 1ML VIAL/SYRINGE SQ SCH ×2 (08:10→20:15)
[2021-11-01 08:40] LABS: HEMATOCRIT 38.5 % (42.0-52.0); HEMOGLOBIN 12.9 g/dl (13.5-17.5); MEAN CORPUSCULAR HEMOGLOBIN 30.8 pg (27.0-33.0); MEAN CORPUSCULAR HGB CONC 33.5 g/dl (32.0-36.5); MEAN CORPUSCULAR VOLUME 91.9 fl (80.0-96.0); PLATELET COUNT, AUTOMATED 305 10^3/uL (150-450); RED BLOOD COUNT 4.19 10^6/uL (4.30-6.10); WHITE BLOOD COUNT 7.4 10^3/uL (4.0-10.0)
[2021-11-01 09:02] LABS: ALBUMIN 2.6 GM/DL (3.2-5.2); ALT/SGPT 37 U/L (12-78); BILIRUBIN,DIRECT < 0.1 MG/DL (0.0-0.2); BILIRUBIN,TOTAL 0.3 MG/DL (0.2-1.0); BLOOD UREA NITROGEN 65 MG/DL (7-18); CALCIUM LEVEL 8.6 MG/DL (8.8-10.2); CARBON DIOXIDE LEVEL 30 MEQ/L (21-32); CHLORIDE LEVEL 96 MEQ/L (98-107); CREATININE FOR GFR 1.86 MG/DL (0.70-1.30); GLOMERULAR FILTRATION RATE 38.5 (>49); GLUCOSE, FASTING 79 MG/DL (70-100); MAGNESIUM LEVEL 2.7 MG/DL (1.8-2.4); POTASSIUM SERUM 4.2 MEQ/L (3.5-5.1); SODIUM LEVEL 134 MEQ/L (136-145)
[2021-11-01 13:37] LABS: APPEARANCE, URINE CLEAR (CLEAR); BACTERIA, URINE AUTO 1+ (NEGATIVE); BILIRUBIN, URINE AUTO NEGATIVE (NEGATIVE); BLOOD, URINE BLOOD NEGATIVE (NEGATIVE); COLOR, URINE YELLOW (YELLOW); GLUCOSE, URINE (UA) AUTO NEGATIVE (NEGATIVE); KETONE, URINE AUTO NEGATIVE (NEGATIVE); LEUKOCYTE ESTERASE, URINE AUTO NEGATIVE (NEGATIVE); MUCUS, URINE SMALL (NEGATIVE); NITRITE, URINE AUTO NEGATIVE (NEGATIVE); PROTEIN, URINE AUTO NEGATIVE (NEGATIVE); RBC, URINE AUTO 1 /HPF (0-3); SPECIFIC GRAVITY URINE AUTO 1.014 (1.002-1.035); SQUAMOUS EPITHELIAL CELL UR AU 0 /HPF (0-6); UROBILINOGEN, URINE AUTO 0.2 mg/dL (0.0-2.0); WBC, URINE AUTO 0 /HPF (0-3)
[2021-11-01 13:57] VITALS: BP 104/57
[2021-11-01 19:21] VITALS: BP 106/62
[2021-11-02 04:00] VITALS: BP 107/63
[2021-11-02] MEDS: SODIUM CHLORIDE 0.9% INJ 10 ML SYR IV SCH (04:55)
[2021-11-02 08:09] LABS: HEMATOCRIT 36.3 % (42.0-52.0); HEMOGLOBIN 12.2 g/dl (13.5-17.5); MEAN CORPUSCULAR HEMOGLOBIN 31.1 pg (27.0-33.0); MEAN CORPUSCULAR HGB CONC 33.6 g/dl (32.0-36.5); MEAN CORPUSCULAR VOLUME 92.6 fl (80.0-96.0); PLATELET COUNT, AUTOMATED 344 10^3/uL (150-450); RED BLOOD COUNT 3.92 10^6/uL (4.30-6.10)
[2021-11-02] MEDS: HEPARIN SOD (PORCINE) 5000UNITS/ML 1ML VIAL/SYRINGE SQ SCH (08:17)
[2021-11-02 08:40] LABS: BLOOD UREA NITROGEN 42 MG/DL (7-18); CALCIUM LEVEL 8.7 MG/DL (8.8-10.2); CARBON DIOXIDE LEVEL 29 MEQ/L (21-32); CHLORIDE LEVEL 104 MEQ/L (98-107); CREATININE FOR GFR 1.23 MG/DL (0.70-1.30); GLOMERULAR FILTRATION RATE > 60.0 (>49); GLUCOSE, FASTING 91 MG/DL (70-100); MAGNESIUM LEVEL 2.4 MG/DL (1.8-2.4); POTASSIUM SERUM 3.7 MEQ/L (3.5-5.1); SODIUM LEVEL 138 MEQ/L (136-145)
== END 2021-11-02 11:41 | disposition home or self-care (01) | DRG 388 ==
LOC: M ED 11:23 → EDBD 11:23 → M ED INP 15:56 → ENRESERV 16:25 → M 4MAIN 17:19
PROVIDERS: ADMIT Family Medicine; ATTEND Family Medicine
PROC: XW033E5 Introduction of Remdesivir Anti-infective into Peripheral Vein, Percutaneous Approach, New Technology Group 5 (ICD-10-PCS; principal; 2021-10-24)
PROC: 02HV33Z Insertion of Infusion Device into Superior Vena Cava, Percutaneous Approach (ICD-10-PCS; 2021-10-26)
DX: K56.609 Unspecified intestinal obstruction, unspecified as to partial versus complete obstruction (principal); U07.1 COVID-19; E43 Unspecified severe protein-calorie malnutrition; N17.9 Acute kidney failure, unspecified; Z68.1 Body mass index [BMI] 19.9 or less, adult; Z93.3 Colostomy status; I10 Essential (primary) hypertension; Z85.21 Personal history of malignant neoplasm of larynx; Z79.899 Other long term (current) drug therapy; Z92.3 Personal history of irradiation; Z92.21 Personal history of antineoplastic chemotherapy

== ENCOUNTER → 2021-11-19 | Outpatient (CLI) | payer MEDICARE | LOC: M LABSMTC 12:05 | PROVIDERS: ATTEND Anesthesiology | DX: Z01.818 Encounter for other preprocedural examination (principal); Z11.52 Encounter for screening for COVID-19 ==

== ENCOUNTER 2021-11-24 10:49 | Day surgery (SDC) | payer MEDICARE ==
[~2021-11-24] VITALS: Ht 175.3 cm; Wt 54.0 kg
[~2021-11-24 10:49] MED LIST changes: +NS 1,000 ML IV ONE
[2021-11-24] MEDS ORDERED: propofoL 500 MG/50 ML VIAL As Ordered ONE (12:48)
[2021-11-24] MEDS ORDERED: LIDOCAINE 2% 100MG/5ML SDV (FOR ANES.) As Ordered ONE (12:48)
[2021-11-24 15:00] VITALS: BP 156/72
== END 2021-11-24 15:09 | disposition home or self-care (01) ==
LOC: M OPP 10:49
PROVIDERS: ATTEND Surgery
DX: K56.609 Unspecified intestinal obstruction, unspecified as to partial versus complete obstruction (principal); K57.30 Diverticulosis of large intestine without perforation or abscess without bleeding; Z86.16 Personal history of COVID-19; Z92.21 Personal history of antineoplastic chemotherapy; Z92.3 Personal history of irradiation; Z93.3 Colostomy status; Z79.899 Other long term (current) drug therapy; Z87.891 Personal history of nicotine dependence

== ENCOUNTER → 2022-01-17 | Outpatient (CLI) | payer MEDICARE ==
[~2022-01-17] MED LIST changes: -NS 1,000 ML IV ONE
[2022-01-17 11:28] LABS: BLOOD UREA NITROGEN 18 MG/DL (7-18); CREATININE FOR GFR 1.24 MG/DL (0.70-1.30); GLOMERULAR FILTRATION RATE > 60.0 (>49)
== END ==
LOC: M LAB 10:05
PROVIDERS: ATTEND Surgery
DX: Z01.810 Encounter for preprocedural cardiovascular examination (principal)

== ENCOUNTER → 2022-01-21 | Outpatient (CLI) | payer MEDICARE ==
[~2022-01-21] MED LIST changes: +GASTROGRAFIN SOLUTION 30ML (Q9963) As Ordered ONE; +ISOVUE-370 76% 100ML VIAL As Ordered ONE
== END ==
LOC: M RAD 12:57
PROVIDERS: ATTEND Surgery
DX: K56.609 Unspecified intestinal obstruction, unspecified as to partial versus complete obstruction (principal)
CPT/HCPCS: 74178; Q9963; Q9967

== ENCOUNTER → 2022-02-14 | Outpatient (CLI) | payer MEDICARE ==
[~2022-02-14] MED LIST changes: -GASTROGRAFIN SOLUTION 30ML (Q9963) As Ordered ONE; -ISOVUE-370 76% 100ML VIAL As Ordered ONE
== END ==
LOC: M RAD 13:21
PROVIDERS: ATTEND Family Medicine Addiction Medicine
DX: M54.59 Other low back pain (principal)

== ENCOUNTER → 2022-03-06 | Outpatient (CLI) | payer MEDICARE | LOC: EDBD → M LABSMTC 11:23 | PROVIDERS: ATTEND Anesthesiology | DX: Z01.812 Encounter for preprocedural laboratory examination (principal); Z20.822 Contact with and (suspected) exposure to COVID-19 ==

== ENCOUNTER → 2022-03-10 | Outpatient (CLI) | payer MEDICARE ==
[2022-03-10 12:13] LABS: BASO % 0.4 % (0.0-1.0); EOS # 0.1 10^3/uL (0.0-0.5); HEMATOCRIT 45.1 % (42.0-52.0); HEMOGLOBIN 15.4 g/dl (13.5-17.5); LYMPH # 0.9 10^3/uL (1.5-5.0); LYMPH % 13.4 % (24.0-44.0); MEAN CORPUSCULAR HEMOGLOBIN 33.3 pg (27.0-33.0); MEAN CORPUSCULAR HGB CONC 34.1 g/dl (32.0-36.5); MEAN CORPUSCULAR VOLUME 97.4 fl (80.0-96.0); MONO # 0.9 10^3/uL (0.0-0.8); MONO % 13.1 % (2.0-8.0); NEUTROPHILS # 4.9 10^3/uL (1.5-8.5); NEUTROPHILS % 71.7 % (36.0-66.0); PLATELET COUNT, AUTOMATED 290 10^3/uL (150-450); RED BLOOD COUNT 4.63 10^6/uL (4.30-6.10); WHITE BLOOD COUNT 6.8 10^3/uL (4.0-10.0)
[2022-03-10 12:25] LABS: INR 0.96; PROTHROMBIN TIME 13.2 SECONDS (12.7-14.5)
[2022-03-10 12:39] LABS: ALBUMIN 3.7 GM/DL (3.2-5.2); ALT/SGPT 26 U/L (12-78); BILIRUBIN,TOTAL 0.4 MG/DL (0.2-1.0); BLOOD UREA NITROGEN 16 MG/DL (7-18); CALCIUM LEVEL 9.9 MG/DL (8.8-10.2); CARBON DIOXIDE LEVEL 24 MEQ/L (21-32); CHLORIDE LEVEL 112 MEQ/L (98-107); CHOLESTEROL LEVEL 169 MG/DL (<200); CHOLESTEROL RISK RATIO 1.898 (<5); CREATININE FOR GFR 1.15 MG/DL (0.70-1.30); GLOMERULAR FILTRATION RATE > 60.0 (>49); GLUCOSE, FASTING 112 MG/DL (70-100); HDL CHOLESTEROL 89 MG/DL (>40); LDL CHOLESTEROL 69 MG/DL (<100); NON-HDL-C 80 MG/DL; POTASSIUM SERUM 4.2 MEQ/L (3.5-5.1); SODIUM LEVEL 143 MEQ/L (136-145); TOTAL PROTEIN 6.6 GM/DL (6.4-8.2); TRIGLYCERIDES LEVEL 54 MG/DL (<150)
[2022-03-10 13:22] LABS: HEMOGLOBIN A1c 5.3 %
== END ==
LOC: M LAB 11:35
PROVIDERS: ATTEND Physician Assistant
DX: I10 Essential (primary) hypertension (principal)

== ENCOUNTER 2022-03-11 05:59 | Inpatient (IN) | payer MEDICARE ==
[~2022-03-11] VITALS: Ht 175.3 cm; Wt 54.0 kg
[2022-03-11] VITALS (8 sets, daily range): BP systolic 133–152; BP diastolic 66–98
[2022-03-11] MEDS ORDERED: LR 500 ML IV ONE (06:30)
[2022-03-11] MEDS ORDERED: cefoTEtan DISODIUM 2 GM in D5W MINI-BAG PLUS 50 ML IV ONE ×2 (06:30→19:30)
[2022-03-11] MEDS ORDERED: INSULIN LISPRO (NovoLOG) PER UNIT SC PRN ×2 (07:00→13:25)
[2022-03-11] MEDS ORDERED: ALVIMOPAN 12 MG CAPSULE (ENTEREG) PO ONE (07:00)
[2022-03-11] MEDS ORDERED: LR 1,000 ML IV SCH ×3 (07:00→13:25)
[2022-03-11] MEDS ORDERED: fentaNYL 100 MCG/2 ML INJECTION As Ordered ONE (07:14)
[2022-03-11] MEDS ORDERED: MIDAZOLAM INJ 2MG/2ML VIAL (J2250 PER 1MG) As Ordered ONE (07:14)
[2022-03-11] MEDS ORDERED: propofoL 200 MG/20 ML VIAL As Ordered ONE ×2 (07:14→07:19)
[2022-03-11] MEDS ORDERED: ACETAMINOPHEN 1000MG 100ML IV BTL (OFIRMEV) (J0131 PER 10MG) As Ordered ONE ×2 (07:14→14:13)
[2022-03-11] MEDS ORDERED: KETOROLAC 60MG 2ML VIAL As Ordered ONE (07:14)
[2022-03-11] MEDS ORDERED: ROCURONIUM BROMIDE 50 MG/5 ML VIAL As Ordered ONE ×2 (07:14→10:19)
[2022-03-11] MEDS ORDERED: dexameTHASONE 4 MG/ML 1ML VIAL (J1100 PER 1MG) As Ordered ONE (07:14)
[2022-03-11] MEDS ORDERED: METOCLOPRAMIDE INJ 10MG/2ML VIAL (J2765 PER 1) As Ordered ONE (07:14)
[2022-03-11] MEDS ORDERED: ONDANSETRON 4MG/2ML VIAL As Ordered ONE (07:14)
[2022-03-11] MEDS ORDERED: LIDOCAINE 2% 100MG/5ML SDV (FOR ANES.) As Ordered ONE (07:14)
[2022-03-11] MEDS ORDERED: BUPIVACAINE HCL 0.25% 30ML VIAL As Ordered ONE (07:16)
[2022-03-11] MEDS ORDERED: PHENYLEPHRINE 10MG/ML 1ML VIAL (J2370 PER 1) As Ordered ONE (08:20)
[2022-03-11] MEDS ORDERED: SUGAMMADEX SODIUM 500 MG/5 ML VIAL (BRIDION) As Ordered ONE (08:20)
[2022-03-11] MEDS ORDERED: HYDROmorphone HCL 2MG/ML 1ML VIAL As Ordered ONE ×2 (09:07→14:14)
[2022-03-11] MEDS ORDERED: oxyCODONE 5MG TAB PO PRN (13:25)
[2022-03-11] MEDS ORDERED: HYDROMORPHONE HCL 0.5 MG/ 0.5 ML SYRINGE (J1170 PER 1) IV PRN (13:25)
[2022-03-11] MEDS ORDERED: ONDANSETRON 4MG/2ML VIAL IV PRN (13:25)
[2022-03-11] MEDS ORDERED: METOCLOPRAMIDE INJ 10MG/2ML VIAL (J2765 PER 1) IV PRN ×2 (13:25→13:35)
[2022-03-11] MEDS ORDERED: ALBUTEROL SULFATE 2.5 MG/0.5 ML INH NEB SOLN INH ONE (13:25)
[2022-03-11] MEDS ORDERED: fentaNYL 100 MCG/2 ML INJECTION IV PRN (13:25)
[2022-03-11] MEDS ORDERED: PERCOCET 5MG/325MG TAB PO PRN (13:35)
[2022-03-11] MEDS ORDERED: KETOROLAC 30 MG/ML 1ML VIAL IV PRN (13:35)
[2022-03-11] MEDS: LR 1,000 ML IV SCH ×2 (14:51→20:52)
[2022-03-11] MEDS ORDERED: ePHEDrine SULFATE 25 MG/5 ML(5MG/ML) SYRINGE As Ordered ONE (15:20)
[2022-03-11] MEDS: ALVIMOPAN 12 MG CAPSULE (ENTEREG) PO SCH (20:52)
[2022-03-11] MEDS: ENOXAPARIN 40MG/0.4ML SYRINGE (J1650 PER 10MG) SC SCH (20:52)
[2022-03-11] MEDS: ACETAMINOPHEN TAB 650MG DOSE (2X325MG) PO PRN (20:52)
[2022-03-12] VITALS (8 sets, daily range): BP systolic 122–184; BP diastolic 68–96
[2022-03-12] MEDS: LR 1,000 ML IV SCH (03:11)
[2022-03-12 08:22] LABS: BASO % 0.2 % (0.0-1.0); EOS % 0.3 % (0.0-3.0); HEMATOCRIT 41.8 % (42.0-52.0); HEMOGLOBIN 14.4 g/dl (13.5-17.5); LYMPH # 0.5 10^3/uL (1.5-5.0); LYMPH % 4.4 % (24.0-44.0); MEAN CORPUSCULAR HEMOGLOBIN 33.2 pg (27.0-33.0); MEAN CORPUSCULAR HGB CONC 34.4 g/dl (32.0-36.5); MEAN CORPUSCULAR VOLUME 96.3 fl (80.0-96.0); MONO # 0.8 10^3/uL (0.0-0.8); MONO % 6.6 % (2.0-8.0); NEUTROPHILS # 10.5 10^3/uL (1.5-8.5); NEUTROPHILS % 88.1 % (36.0-66.0); PLATELET COUNT, AUTOMATED 236 10^3/uL (150-450); RED BLOOD COUNT 4.34 10^6/uL (4.30-6.10); WHITE BLOOD COUNT 11.9 10^3/uL (4.0-10.0)
[2022-03-12 08:30] LABS: CALCIUM LEVEL 8.9 MG/DL (8.8-10.2); CREATININE FOR GFR 1.77 MG/DL (0.70-1.30); GLOMERULAR FILTRATION RATE 40.8 (>49)
[2022-03-12] MEDS: ACETAMINOPHEN TAB 650MG DOSE (2X325MG) PO PRN ×2 (08:54→18:11)
[2022-03-12] MEDS: ALVIMOPAN 12 MG CAPSULE (ENTEREG) PO SCH ×2 (08:54→21:34)
[2022-03-12] MEDS ORDERED: LR 1,000 ML IV SCH (21:05)
[2022-03-12] MEDS ORDERED: **hydrALAZINE HCL** 25 MG TAB PO ONE (21:05)
[2022-03-12] MEDS: ENOXAPARIN 40MG/0.4ML SYRINGE (J1650 PER 10MG) SC SCH (21:34)
[2022-03-13] VITALS (11 sets, daily range): BP systolic 122–169; BP diastolic 68–92
[2022-03-13 06:06] LABS: BASO % 0.1 % (0.0-1.0); EOS # 0.1 10^3/uL (0.0-0.5); EOS % 0.3 % (0.0-3.0); HEMOGLOBIN 16.1 g/dl (13.5-17.5); LYMPH # 0.5 10^3/uL (1.5-5.0); LYMPH % 3.1 % (24.0-44.0); MEAN CORPUSCULAR HEMOGLOBIN 32.7 pg (27.0-33.0); MEAN CORPUSCULAR VOLUME 93.5 fl (80.0-96.0); MONO # 1.2 10^3/uL (0.0-0.8); MONO % 7.3 % (2.0-8.0); NEUTROPHILS # 14.7 10^3/uL (1.5-8.5); NEUTROPHILS % 88.3 % (36.0-66.0); PLATELET COUNT, AUTOMATED 234 10^3/uL (150-450); RED BLOOD COUNT 4.92 10^6/uL (4.30-6.10); WHITE BLOOD COUNT 16.6 10^3/uL (4.0-10.0)
[2022-03-13 06:29] LABS: BLOOD UREA NITROGEN 11 MG/DL (7-18); CALCIUM LEVEL 8.7 MG/DL (8.8-10.2); CARBON DIOXIDE LEVEL 27 MEQ/L (21-32); CHLORIDE LEVEL 98 MEQ/L (98-107); CREATININE FOR GFR 1.12 MG/DL (0.70-1.30); GLOMERULAR FILTRATION RATE > 60.0 (>49); GLUCOSE, FASTING 115 MG/DL (70-100); POTASSIUM SERUM 3.6 MEQ/L (3.5-5.1); SODIUM LEVEL 134 MEQ/L (136-145)
[2022-03-13] MEDS: ONDANSETRON 4MG/2ML VIAL IV PRN (07:28)
[2022-03-13] MEDS: ALVIMOPAN 12 MG CAPSULE (ENTEREG) PO SCH (08:45)
[2022-03-13] MEDS ORDERED: LORazepam 2 MG TAB PO PRN (08:55)
[2022-03-13] MEDS: OXAZEPAM 10MG CAP PO SCH ×2 (09:58→21:14)
[2022-03-13] MEDS: NS 1,000 ML IV SCH (10:22)
[2022-03-13] MEDS ORDERED: LISI20TA33 PO (15:05)
[2022-03-13] MEDS ORDERED: HOME MED LIST COMPLETE! XX SCH (15:10)
[2022-03-13] MEDS: ENOXAPARIN 40MG/0.4ML SYRINGE (J1650 PER 10MG) SC SCH (21:13)
[2022-03-14] VITALS (9 sets, daily range): BP systolic 106–151; BP diastolic 62–95
[2022-03-14] MEDS: NS 1,000 ML IV SCH (02:03)
[2022-03-14 02:33] LABS: BLOOD UREA NITROGEN 14 MG/DL (7-18); CALCIUM LEVEL 9.3 MG/DL (8.8-10.2); CARBON DIOXIDE LEVEL 29 MEQ/L (21-32); CHLORIDE LEVEL 103 MEQ/L (98-107); CREATININE FOR GFR 1.15 MG/DL (0.70-1.30); GLOMERULAR FILTRATION RATE > 60.0 (>49); GLUCOSE, FASTING 122 MG/DL (70-100); POTASSIUM SERUM 3.9 MEQ/L (3.5-5.1); SODIUM LEVEL 138 MEQ/L (136-145)
[2022-03-14] MEDS ORDERED: LORazepam 2 MG/ML VIAL IV ONE (05:05)
[2022-03-14] MEDS: ONDANSETRON 4MG/2ML VIAL IV PRN (05:36)
[2022-03-14] MEDS: OXAZEPAM 10MG CAP PO SCH (09:00)
[2022-03-14] MEDS: amLODIPine 5 MG TAB PO SCH (09:00)
[2022-03-14 09:12] LABS: BASO % 0.1 % (0.0-1.0); EOS # 0.1 10^3/uL (0.0-0.5); HEMATOCRIT 44.7 % (42.0-52.0); HEMOGLOBIN 15.4 g/dl (13.5-17.5); LYMPH # 0.4 10^3/uL (1.5-5.0); LYMPH % 3.3 % (24.0-44.0); MEAN CORPUSCULAR HEMOGLOBIN 32.8 pg (27.0-33.0); MEAN CORPUSCULAR HGB CONC 34.5 g/dl (32.0-36.5); MEAN CORPUSCULAR VOLUME 95.3 fl (80.0-96.0); MONO # 1.1 10^3/uL (0.0-0.8); MONO % 8.9 % (2.0-8.0); NEUTROPHILS # 10.9 10^3/uL (1.5-8.5); NEUTROPHILS % 86.1 % (36.0-66.0); PLATELET COUNT, AUTOMATED 223 10^3/uL (150-450); RED BLOOD COUNT 4.69 10^6/uL (4.30-6.10); WHITE BLOOD COUNT 12.6 10^3/uL (4.0-10.0)
[2022-03-14 09:38] LABS: ALBUMIN 2.5 GM/DL (3.2-5.2); ALT/SGPT 16 U/L (12-78); BILIRUBIN,TOTAL 0.5 MG/DL (0.2-1.0); BLOOD UREA NITROGEN 16 MG/DL (7-18); CALCIUM LEVEL 8.9 MG/DL (8.8-10.2); CARBON DIOXIDE LEVEL 28 MEQ/L (21-32); CHLORIDE LEVEL 105 MEQ/L (98-107); CREATININE FOR GFR 1.07 MG/DL (0.70-1.30); GLOMERULAR FILTRATION RATE > 60.0 (>49); GLUCOSE, FASTING 108 MG/DL (70-100); POTASSIUM SERUM 3.9 MEQ/L (3.5-5.1); SODIUM LEVEL 140 MEQ/L (136-145); TOTAL PROTEIN 5.5 GM/DL (6.4-8.2)
[2022-03-14] MEDS ORDERED: NS 1,000 ML IV ONE (11:50)
[2022-03-14] MEDS: ACETAMINOPHEN TAB 650MG DOSE (2X325MG) PO PRN (14:03)
[2022-03-14] MEDS: LR 1,000 ML IV SCH (19:01)
[2022-03-14] MEDS: ENOXAPARIN 40MG/0.4ML SYRINGE (J1650 PER 10MG) SC SCH (21:00)
[2022-03-15] VITALS (8 sets, daily range): BP systolic 138–148; BP diastolic 82–86
[2022-03-15] MEDS: LR 1,000 ML IV SCH ×2 (07:55→20:37)
[2022-03-15] MEDS: amLODIPine 5 MG TAB PO SCH (07:55)
[2022-03-15] MEDS: ACETAMINOPHEN TAB 650MG DOSE (2X325MG) PO PRN (07:55)
[2022-03-15 08:24] LABS: BASO % 0.5 % (0.0-1.0); EOS # 0.3 10^3/uL (0.0-0.5); EOS % 3.7 % (0.0-3.0); HEMATOCRIT 42.9 % (42.0-52.0); HEMOGLOBIN 14.5 g/dl (13.5-17.5); LYMPH # 0.5 10^3/uL (1.5-5.0); LYMPH % 5.4 % (24.0-44.0); MEAN CORPUSCULAR HEMOGLOBIN 32.6 pg (27.0-33.0); MEAN CORPUSCULAR HGB CONC 33.8 g/dl (32.0-36.5); MEAN CORPUSCULAR VOLUME 96.4 fl (80.0-96.0); MONO # 0.9 10^3/uL (0.0-0.8); MONO % 10.4 % (2.0-8.0); NEUTROPHILS # 6.7 10^3/uL (1.5-8.5); NEUTROPHILS % 79.6 % (36.0-66.0); PLATELET COUNT, AUTOMATED 236 10^3/uL (150-450); RED BLOOD COUNT 4.45 10^6/uL (4.30-6.10); WHITE BLOOD COUNT 8.4 10^3/uL (4.0-10.0)
[2022-03-15 08:47] LABS: ALBUMIN 2.2 GM/DL (3.2-5.2); ALT/SGPT 12 U/L (12-78); BILIRUBIN,TOTAL 0.4 MG/DL (0.2-1.0); BLOOD UREA NITROGEN 17 MG/DL (7-18); CALCIUM LEVEL 8.6 MG/DL (8.8-10.2); CARBON DIOXIDE LEVEL 24 MEQ/L (21-32); CHLORIDE LEVEL 108 MEQ/L (98-107); CREATININE FOR GFR 0.93 MG/DL (0.70-1.30); GLOMERULAR FILTRATION RATE > 60.0 (>49); GLUCOSE, FASTING 105 MG/DL (70-100); POTASSIUM SERUM 3.8 MEQ/L (3.5-5.1); SODIUM LEVEL 140 MEQ/L (136-145); TOTAL PROTEIN 5.2 GM/DL (6.4-8.2)
[2022-03-15] MEDS: ENOXAPARIN 40MG/0.4ML SYRINGE (J1650 PER 10MG) SC SCH (20:37)
[2022-03-16 02:00] VITALS: BP 154/98
[2022-03-16] MEDS: ACETAMINOPHEN TAB 650MG DOSE (2X325MG) PO PRN (05:57)
[2022-03-16 06:00] VITALS: BP 156/87
[2022-03-16 09:18] VITALS: BP 145/95
[2022-03-16] MEDS: amLODIPine 5 MG TAB PO SCH (09:18)
[2022-03-16] MEDS: LR 1,000 ML IV SCH (10:50)
== END 2022-03-16 11:23 | disposition home or self-care (01) | DRG 330 ==
LOC: EDBD → M OR 05:59 → M MSPAV 14:23
PROVIDERS: ADMIT Surgery; ATTEND Surgery
PROC: 0T978ZZ Drainage of Left Ureter, Via Natural or Artificial Opening Endoscopic (ICD-10-PCS; 2022-03-11)
PROC: 0DBN4ZZ Excision of Sigmoid Colon, Percutaneous Endoscopic Approach (ICD-10-PCS; principal; 2022-03-11 07:30)
PROC: 0DBP4ZZ Excision of Rectum, Percutaneous Endoscopic Approach (ICD-10-PCS; 2022-03-11 07:30)
DX: Z43.3 Encounter for attention to colostomy (principal); F10.139 Alcohol abuse with withdrawal, unspecified; N17.9 Acute kidney failure, unspecified; I10 Essential (primary) hypertension; J44.9 Chronic obstructive pulmonary disease, unspecified; Z87.891 Personal history of nicotine dependence; Z79.899 Other long term (current) drug therapy; E78.00 Pure hypercholesterolemia, unspecified; Z85.819 Personal history of malignant neoplasm of unspecified site of lip, oral cavity, and pharynx; R00.0 Tachycardia, unspecified; K66.0 Peritoneal adhesions (postprocedural) (postinfection); E86.1 Hypovolemia

== ENCOUNTER → 2023-12-22 | Outpatient (REF) | payer MEDICARE ==
[~2023-12-22] MED LIST changes: +LEVO1TAB39 PO; -LEVO500T4 PO
== END ==
LOC: M LABWUC 16:28
PROVIDERS: ATTEND Physician Assistant
DX: R97.20 Elevated prostate specific antigen [PSA] (principal)

== ENCOUNTER → 2023-12-27 | Outpatient (CLI) | payer MEDICARE | LOC: M PLALAB 09:20 | PROVIDERS: ATTEND Physician Assistant | DX: R97.20 Elevated prostate specific antigen [PSA] (principal) ==

== ENCOUNTER → 2024-01-06 | Outpatient (REF) | payer MEDICARE | LOC: M SMT 13:41 | PROVIDERS: ATTEND Urology | DX: R97.20 Elevated prostate specific antigen [PSA] (principal); F17.210 Nicotine dependence, cigarettes, uncomplicated; Z79.899 Other long term (current) drug therapy ==

== ENCOUNTER → 2024-07-04 | Outpatient (CLI) | payer MEDICARE ==
[2024-07-05 10:57] LABS: PSA FREE 0.7 ng/mL
== END ==
LOC: M WUC 09:02
PROVIDERS: ATTEND Urology
DX: R97.20 Elevated prostate specific antigen [PSA] (principal)

== ENCOUNTER → 2024-07-11 | Outpatient (REF) | payer MEDICARE ==
[2024-07-11 17:36] LABS: APPEARANCE, URINE MANUAL TURBID (CLEAR); COLOR, URINE MANUAL DK YELLOW (YELLOW)
[2024-07-11 17:37] LABS: BILIRUBIN, URINE MANUAL NEGATIVE (NEGATIVE); GLUCOSE, URINE (UA) MANUAL NEGATIVE (NEGATIVE); KETONE, URINE MANUAL NEGATIVE (NEGATIVE); NITRITE, URINE MANUAL NEGATIVE (NEGATIVE); PROTEIN, URINE MANUAL TRACE mg/dL (NEGATIVE); UROBILINOGEN, URINE MANUAL NORMAL (NORMAL)
[2024-07-11 17:38] LABS: BLOOD URINE MANUAL NEGATIVE (NEGATIVE); LEUKOCYTE ESTERASE, URINE MAN TRACE (NEGATIVE)
[2024-07-11 20:12] LABS: RBC, URINE 0-1 /hpf (0-3); SQUAMOUS EPITHELIAL CELL URINE SMALL AMOUNT /hpf (SMALL AMT); WBC, URINE 0-1 /hpf (0-3)
[2024-07-11 20:13] LABS: AMORPHOUS SEDIMENT, URINE LARGE AMOUNT (NEGATIVE); BACTERIA, URINE NONE SEEN; HYALINE CAST, URINE NONE SEEN /lpf (0-1)
== END ==
LOC: M SMT 17:02
PROVIDERS: ATTEND Physician Assistant
DX: R82.90 Unspecified abnormal findings in urine (principal)

== ENCOUNTER → 2024-08-08 | Outpatient (CLI) | payer MEDICARE ==
[2024-08-08 12:12] LABS: BASO % 0.7 % (0.0-1.0); EOS # 0.2 10^3/uL (0.0-0.5); EOS % 3.2 % (0.0-3.0); HEMATOCRIT 42.2 % (42.0-52.0); HEMOGLOBIN 14.5 g/dl (13.5-17.5); LYMPH # 1.1 10^3/uL (1.5-5.0); LYMPH % 18.6 % (24.0-44.0); MEAN CORPUSCULAR HEMOGLOBIN 32.5 pg (27.0-33.0); MEAN CORPUSCULAR HGB CONC 34.4 g/dl (32.0-36.5); MEAN CORPUSCULAR VOLUME 94.6 fl (80.0-96.0); MONO # 0.7 10^3/uL (0.0-0.8); MONO % 12.2 % (2.0-8.0); NEUTROPHILS # 3.7 10^3/uL (1.5-8.5); NEUTROPHILS % 64.9 % (36.0-66.0); PLATELET COUNT, AUTOMATED 262 10^3/uL (150-450); RED BLOOD COUNT 4.46 10^6/uL (4.30-6.10); WHITE BLOOD COUNT 5.6 10^3/uL (4.0-10.0)
[2024-08-08 12:27] LABS: TOTAL IRON BINDING CAPACITY 310 UG/DL (250-425)
[2024-08-08 12:29] LABS: ALBUMIN 3.8 G/DL (3.2-5.2); ALKALINE PHOSPHATASE 76 U/L (46-116); ALT/SGPT 14 U/L (7.0-40); AST/SGOT 16 U/L (<34); BILIRUBIN,TOTAL 0.5 MG/DL (0.3-1.2); BLOOD UREA NITROGEN 19 MG/DL (9-23); CALCIUM LEVEL 9.7 MG/DL (8.3-10.6); CARBON DIOXIDE LEVEL 28 MMOL/L (20-31); CHLORIDE LEVEL 109 MMOL/L (98-107); CHOLESTEROL LEVEL 168 MG/DL (<200); CHOLESTEROL RISK RATIO 2.25 (<5); CREATININE FOR GFR 1.25 MG/DL (0.70-1.30); GLOMERULAR FILTRATION RATE > 60.0 (>42); GLUCOSE, FASTING 101 MG/DL (74-106); HDL CHOLESTEROL 74.4 MG/DL (>40); IRON (FE) 74 UG/DL (65-175); LDL CHOLESTEROL 78.8 MG/DL (<100); NON-HDL-C 93.6 MG/DL; PERCENT SATURATION 23.9 % (19.7-50.0); POTASSIUM SERUM 4.3 MMOL/L (3.5-5.1); SODIUM LEVEL 142 MMOL/L (136-145); TOTAL PROTEIN 6.7 G/DL (5.7-8.2); TRIGLYCERIDES LEVEL 74 MG/DL (<150)
[2024-08-08 12:30] LABS: FERRITIN 106.4 NG/ML (10.5-307.3); THYROID STIMULATING HORMONE 2.769 uIU/ML (0.55-4.78)
== END ==
LOC: M WUC 09:19
PROVIDERS: ATTEND Nurse Practitioner Adult Health
DX: K21.9 Gastro-esophageal reflux disease without esophagitis (principal); E78.00 Pure hypercholesterolemia, unspecified; D50.9 Iron deficiency anemia, unspecified

== ENCOUNTER → 2024-12-12 | Outpatient (CLI) | payer MEDICARE ==
[2024-12-12 17:03] LABS: ALBUMIN 3.7 G/DL (3.2-5.2); ALKALINE PHOSPHATASE 72 U/L (40-129); ALT/SGPT 10 U/L (7.0-40); AST/SGOT 17 U/L (<34); BILIRUBIN,TOTAL 0.4 MG/DL (0.3-1.2); BLOOD UREA NITROGEN 20 MG/DL (9-23); CALCIUM LEVEL 9.3 MG/DL (8.3-10.6); CARBON DIOXIDE LEVEL 29 MMOL/L (20-31); CHLORIDE LEVEL 107 MMOL/L (98-107); CHOLESTEROL LEVEL 154 MG/DL (<200); CHOLESTEROL RISK RATIO 1.89 (<5); CREATININE FOR GFR 1.21 MG/DL (0.70-1.30); GLOMERULAR FILTRATION RATE > 60.0 (>42); GLUCOSE, FASTING 90 MG/DL (74-106); HDL CHOLESTEROL 81.1 MG/DL (>40); LDL CHOLESTEROL 60.3 MG/DL (<100); NON-HDL-C 72.9 MG/DL; POTASSIUM SERUM 4.3 MMOL/L (3.5-5.1); SODIUM LEVEL 141 MMOL/L (136-145); TOTAL PROTEIN 6.8 G/DL (5.7-8.2); TRIGLYCERIDES LEVEL 63 MG/DL (<150)
[2024-12-12 17:05] LABS: BASO # 0.1 10^3/uL (0.0-0.2); BASO % 0.8 % (0.0-1.0); EOS # 0.1 10^3/uL (0.0-0.5); EOS % 1.2 % (0.0-3.0); HEMATOCRIT 40.5 % (42.0-52.0); LYMPH # 0.9 10^3/uL (1.5-5.0); LYMPH % 14.4 % (24.0-44.0); MEAN CORPUSCULAR HEMOGLOBIN 30.8 pg (27.0-33.0); MEAN CORPUSCULAR HGB CONC 32.1 g/dl (32.0-36.5); MONO # 0.8 10^3/uL (0.0-0.8); NEUTROPHILS # 4.6 10^3/uL (1.5-8.5); PLATELET COUNT, AUTOMATED 359 10^3/uL (150-450); RED BLOOD COUNT 4.22 10^6/uL (4.30-6.10); WHITE BLOOD COUNT 6.5 10^3/uL (4.0-10.0)
[2024-12-12 17:07] LABS: THYROID STIMULATING HORMONE 2.302 uIU/ML (0.55-4.78)
[2024-12-12 17:08] LABS: FREE T4 1.23 NG/DL (0.89-1.76)
== END ==
LOC: M WUC 11:47
PROVIDERS: ATTEND Nurse Practitioner Adult Health
DX: I10 Essential (primary) hypertension (principal); E78.5 Hyperlipidemia, unspecified; R53.83 Other fatigue

== ENCOUNTER 2025-02-19 12:21 | Emergency (ER) | payer MEDICARE ==
[~2025-02-19] VITALS: Ht 175.3 cm; Wt 50.0 kg
[2025-02-19 13:35] LABS: BASO % 0.2 % (0.0-1.0); EOS % 0.1 % (0.0-3.0); HEMATOCRIT 38.2 % (42.0-52.0); HEMOGLOBIN 12.7 g/dl (13.5-17.5); LYMPH # 0.5 10^3/uL (1.5-5.0); LYMPH % 3.4 % (24.0-44.0); MEAN CORPUSCULAR HEMOGLOBIN 31.1 pg (27.0-33.0); MEAN CORPUSCULAR HGB CONC 33.2 g/dl (32.0-36.5); MEAN CORPUSCULAR VOLUME 93.4 fl (80.0-96.0); MONO # 1.6 10^3/uL (0.0-0.8); MONO % 11.8 % (2.0-8.0); NEUTROPHILS # 11.6 10^3/uL (1.5-8.5); PLATELET COUNT, AUTOMATED 248 10^3/uL (150-450); RED BLOOD COUNT 4.09 10^6/uL (4.30-6.10); WHITE BLOOD COUNT 13.8 10^3/uL (4.0-10.0)
[2025-02-19 13:47] LABS: INR 1.17; PARTIAL THROMBOPLASTIN TIME 32.6 SECONDS (24.8-34.2); PROTHROMBIN TIME 15.2 SECONDS (12.5-14.5)
[2025-02-19 14:02] LABS: ALBUMIN 3.4 G/DL (3.2-5.2); BILIRUBIN,DIRECT 0.2 MG/DL (<0.4); BILIRUBIN,TOTAL 0.5 MG/DL (0.3-1.2); CALCIUM LEVEL 9.4 MG/DL (8.3-10.6); CREATININE FOR GFR 2.11 MG/DL (0.70-1.30); GLOMERULAR FILTRATION RATE 32.6 (>42); POTASSIUM SERUM 4.2 MMOL/L (3.5-5.1); TOTAL PROTEIN 6.5 G/DL (5.7-8.2)
[2025-02-19 14:04] LABS: FREE T4 1.22 NG/DL (0.89-1.76); THYROID STIMULATING HORMONE 5.318 uIU/ML (0.55-4.78)
[2025-02-19 14:45] VITALS: BP 133/76; TEMP 97.4
[2025-02-19 15:15] VITALS: O2SAT 98
== END 2025-02-19 15:30 | disposition left against medical advice (07) ==
LOC: M ED 12:21
DX: M54.2 Cervicalgia (principal); N17.9 Acute kidney failure, unspecified; I44.4 Left anterior fascicular block; I45.81 Long QT syndrome; J44.9 Chronic obstructive pulmonary disease, unspecified; Z53.9 Procedure and treatment not carried out, unspecified reason

== ENCOUNTER → 2025-07-22 | Outpatient (CLI) | payer MEDICARE ==
[~2025-07-22] MED LIST changes: +LISI40TA10 PO; -LISI40TA4 PO
[2025-07-22 12:58] LABS: BASO # 0.1 10^3/uL (0.0-0.2); BASO % 0.6 % (0.0-1.0); EOS # 0.3 10^3/uL (0.0-0.5); EOS % 3.9 % (0.0-3.0); LYMPH # 1.1 10^3/uL (1.5-5.0); LYMPH % 14.5 % (24.0-44.0); MONO # 0.8 10^3/uL (0.0-0.8); MONO % 10.0 % (2.0-8.0); NEUTROPHILS # 5.5 10^3/uL (1.5-8.5); NEUTROPHILS % 70.7 % (36.0-66.0); PLATELET COUNT, AUTOMATED 314 10^3/uL (150-450)
[2025-07-22 13:36] LABS: ALT/SGPT 14.0 U/L (7.0-40); AST/SGOT 21.0 U/L (<34); CALCIUM LEVEL 9.1 MG/DL (8.3-10.6); CARBON DIOXIDE LEVEL 29.0 MMOL/L (20-31); CHLORIDE LEVEL 102.0 MMOL/L (98-107); CHOLESTEROL LEVEL 175.0 MG/DL (<200); CHOLESTEROL RISK RATIO 2.31 (<5); CREATININE FOR GFR 1.31 MG/DL (0.70-1.30); GLOMERULAR FILTRATION RATE 57.8 (>42); LDL CHOLESTEROL 84.5 MG/DL (<100); NON-HDL-C 99.3 MG/DL; POTASSIUM SERUM 4.1 MMOL/L (3.5-5.1); SODIUM LEVEL 141.0 MMOL/L (136-145); TRIGLYCERIDES LEVEL 74.0 MG/DL (<150)
[2025-07-22 13:39] LABS: FREE T4 1.29 NG/DL (0.89-1.76)
== END ==
LOC: M WUC 09:24
DX: E78.5 Hyperlipidemia, unspecified (principal); I10 Essential (primary) hypertension; R53.83 Other fatigue